=== PATIENT | female | born 1965 | race Caucasian/White ===

== ENCOUNTER 2017-05-18 16:19 | Emergency (ER) | payer SELFPAY ==
--- NOTE | 2017-05-18 16:23 | ED.PDOC ---
History of Present Illness - General Chief Complaint: General Stated Complaint: allergic reaction Time Seen by Provider: 05/18/17 16:20 Source: patient Exam Limitations: no limitations - History of Present Illness Initial Comments: Yesenia Guardado 52 y/o female with history of asthma,pollen allergies as well as bad reaction to bee and wasp sting stated that she took one bee pollen tablet at about 1230 h today then about 1 1/2 hour later had tingling sensation on her legs ,face got red and felt throat is tightening took 3 benadryl pill then symptoms got better then after 3 hours had recurrence of symptoms and took 3 pills of benadryl and decided to come to er.On her arrival to er stated she started feeling better. Timing/Duration: 4-6 hours, resolved prior to arrival Severity: moderate Improving Factors: nothing Worsening Factors: nothing Associated Symptoms: denies symptoms Allergies/Adverse Reactions: Allergies Codeine Allergy (Verified 05/18/17 16:41) Home Medications: Ambulatory Orders Albuterol Inhaler [Ventolin Hfa Inhaler] 1 puff INH PRN PRN 08/07/15 Albuterol Sulfate [Proair Hfa] 2 puff INH Q6H PRN 08/07/15 Lansoprazole [Prevacid] 30 mg PO DAILY 08/07/15 Levetiracetam [Keppra] 2,000 mg PO BEDTIME 08/07/15 Metaproterenol Sulfate 20 mg PO PRN 08/07/15 Metoclopramide HCl 10 mg PO TID 08/07/15 predniSONE 10 mg PO BID #14 tab 05/18/17 Review of Systems - Review of Systems Constitutional: States: no symptoms reported EENTM: States: see HPI Respiratory: States: no symptoms reported Cardiology: States: no symptoms reported Gastrointestinal/Abdominal: States: no symptoms reported Genitourinary: States: no symptoms reported Musculoskeletal: States: no symptoms reported Skin: States: no symptoms reported Neurological: States: no symptoms reported Endocrine: States: no symptoms reported Hematologic/Lymphatic: States: no symptoms reported Past Medical History (General) - Patient Medical History Hx Asthma: Yes Hx Congestive Heart Failure: No Hx Diabetes: No Surgical History: other - hysterectomy,knee,lumbar spine - Social History Hx Chewing Tobacco Use: No Hx Alcohol Use: No Hx Substance Use: No Hx Depression: No Feels Threatened In Home Enviroment: No Feels Threatened In a Relationship: No Hx Physical Abuse: No Hx Emotional Abuse: No Hx Suspected Abuse: No - Activities of Daily Living Patient Lives Alone: No - family - Female History Patient is a Female of Child Bearing Age (10 -59 yrs old): No - hysterectomy Family Medical History - Family History Father Hx Family Asthma: Yes Hx Family Hypertension: Yes Hx Family Diabetes: Yes Mother Family History: Unknown Living Status: Unknown Physical Exam - Physical Exam General Appearance: Alert, Anxious, No apparent distress Eye Exam: bilateral normal Ears, Nose, Throat: hearing grossly normal, normal ENT inspection, normal pharynx Neck: non-tender, full range of motion, supple Respiratory: chest non-tender, lungs clear, normal breath sounds Cardiovascular/Chest: normal peripheral pulses, regular rate, rhythm, no murmur Peripheral Pulses: radial,right: 2+, radial,left: 2+ Gastrointestinal/Abdominal: normal bowel sounds, non tender, soft Back Exam: normal inspection, no CVA tenderness, no vertebral tenderness Extremity: normal range of motion, non-tender, normal inspection, no calf tenderness Neurologic: no motor/sensory deficits, alert, normal mood/affect, oriented x 3 Skin Exam: normal color, warm/dry Lymphatic: no adenopathy Progress - Progress Progress: 05/18/17 16:46 Vital Signs - 24 hr 05/18/17 16:36 Temperature 97.2 F L Pulse Rate [ 121 H Right Brachial] Respiratory 24 Rate Blood Pressure 119/89 [Right Arm] O2 Sat by Pulse 97 Oximetry 05/18/17 17:23 stated felt better throat not feeling tight,no sob Departure - Departure Clinical Impression: Allergic reaction caused by a drug Time of Disposition: 17:24 Disposition: Discharge to Home or Self Care Condition: Good Instructions: DI for General Allergic Reactions, DI for Adverse Drug Reaction - - Allergic Referrals: Francisco J Escobar III, MD [Primary Care Provider] - 1-2 Weeks Prescriptions: predniSONE 10 mg PO BID #14 tab Home Medications: Ambulatory Orders Albuterol Inhaler [Ventolin Hfa Inhaler] 1 puff INH PRN PRN 08/07/15 Albuterol Sulfate [Proair Hfa] 2 puff INH Q6H PRN 08/07/15 Lansoprazole [Prevacid] 30 mg PO DAILY 08/07/15 Levetiracetam [Keppra] 2,000 mg PO BEDTIME 08/07/15 Metaproterenol Sulfate 20 mg PO PRN 08/07/15 Metoclopramide HCl 10 mg PO TID 08/07/15 predniSONE 10 mg PO BID #14 tab 05/18/17 Additional Instructions: Return to emergency room as needed;Continue with Benadryl (otc) 2 capsules 2-3 x a day for 3 more days,Zantac-75mg(otc) one tablet am/pm for 5 days
[2017-05-18] MEDS ORDERED: EPINEPHrine HCL AMP 1 MG/ML AMP IM ONE (16:24)
[2017-05-18] MEDS ORDERED: DEXAMETHASONE INJ 4 MG/ML VIAL IM ONE (16:24)
[2017-05-18] MEDS ORDERED: predniSONE 20 MG TAB PO ONE (16:33)
[2017-05-18 16:41] VITALS: TEMP 97.2
[2017-05-18 17:43] VITALS: BP 125/70; O2SAT 95
== END 2017-05-18 17:43 | disposition home or self-care (01) ==
LOC: ER 16:19
DX: T50.995A Adverse effect of other drugs, medicaments and biological substances, initial encounter (principal); J45.909 Unspecified asthma, uncomplicated; Z88.6 Allergy status to analgesic agent; Z79.899 Other long term (current) drug therapy
CPT/HCPCS: J1100; J7512

== ENCOUNTER 2017-05-18 18:01 | Emergency (ER) | payer SELFPAY ==
[2017-05-18 18:22] VITALS: TEMP 97
[2017-05-18] MEDS ORDERED: EPINEPHrine HCL AMP 1 MG/ML AMP ONE (19:16)
[2017-05-18] MEDS ORDERED: EPINEPHrine HCL AMP 1 MG/ML AMP IM ONE (19:20)
[2017-05-18] MEDS ORDERED: LACTATED RINGERS 1,000 ML IVS ONE (19:25)
--- NOTE | 2017-05-18 19:31 | ED.PDOC ---
History of Present Illness - General Chief Complaint: Allergic Reaction Stated Complaint: throat swelling Time Seen by Provider: 05/18/17 19:20 Source: patient, RN notes reviewed, Vital Signs reviewed Exam Limitations: no limitations - History of Present Illness Initial Comments: Yesenia Guardado 52 y/o female seen here at [facility] with drug allergic reaction- took a pill of bee pollen was given epinephrine 0.3 mg im,decadron 8 mg im , prednisone 20 mg po and zantac 300 mg po was sent after an hour no sob but came back after 15 minutes while they were buying food had felt thoat was tightening again ,no sob,no itching. Timing/Duration: 4-6 hours Severity: moderate Improving Factors: nothing Worsening Factors: nothing Associated Symptoms: denies symptoms Allergies/Adverse Reactions: Allergies Codeine Allergy (Verified 05/18/17 16:41) Home Medications: Ambulatory Orders Albuterol Inhaler [Ventolin Hfa Inhaler] 1 puff INH PRN PRN 08/07/15 Albuterol Sulfate [Proair Hfa] 2 puff INH Q6H PRN 08/07/15 Lansoprazole [Prevacid] 30 mg PO DAILY 08/07/15 Levetiracetam [Keppra] 2,000 mg PO BEDTIME 08/07/15 Metaproterenol Sulfate 20 mg PO PRN 08/07/15 Metoclopramide HCl 10 mg PO TID 08/07/15 predniSONE 10 mg PO BID #14 tab 05/18/17 Review of Systems - Review of Systems Constitutional: States: no symptoms reported EENTM: States: see HPI, throat swelling Respiratory: States: no symptoms reported Cardiology: States: no symptoms reported Gastrointestinal/Abdominal: States: no symptoms reported Genitourinary: States: no symptoms reported Skin: States: no symptoms reported Neurological: States: no symptoms reported Endocrine: States: no symptoms reported Hematologic/Lymphatic: States: no symptoms reported Past Medical History (General) - Patient Medical History Hx Asthma: Yes Hx Congestive Heart Failure: No Hx Diabetes: No Surgical History: other - hysterectomy ,lumbar spine,knee - Vaccination History Hx Influenza Vaccination: Yes - Social History Hx Tobacco Use: No Hx Chewing Tobacco Use: No Hx Alcohol Use: No Hx Substance Use: No Hx Depression: No Hx Physical Abuse: No Hx Emotional Abuse: No Hx Suspected Abuse: No Family Medical History - Family History Mother Family History: Unknown Living Status: Unknown Father Hx Family Asthma: Yes Hx Family Hypertension: Yes Hx Family Diabetes: Yes Physical Exam - Physical Exam General Appearance: Alert, Anxious, No apparent distress Eye Exam: bilateral normal Ears, Nose, Throat: hearing grossly normal, normal ENT inspection, normal pharynx, other - no drooling Neck: non-tender, full range of motion, supple Respiratory: chest non-tender, lungs clear, normal breath sounds Cardiovascular/Chest: normal peripheral pulses, regular rate, rhythm, no edema, no gallop, no JVD, no murmur, other - speaks in full sentences Peripheral Pulses: radial,right: 2+, radial,left: 2+ Gastrointestinal/Abdominal: normal bowel sounds, non tender, soft, no organomegaly Back Exam: normal inspection, no CVA tenderness, no vertebral tenderness Extremity: normal range of motion, non-tender, normal inspection Neurologic: no motor/sensory deficits, alert, normal mood/affect, oriented x 3 Skin Exam: normal color, warm/dry Lymphatic: no adenopathy Departure - Departure Clinical Impression: Allergic reaction caused by a drug Time of Disposition: 22:26 Disposition: Discharge to Home or Self Care Condition: Good Departure Forms: ED Discharge - Pt. Copy, Patient Portal Self Enrollment Referrals: Francisco J Escobar III, MD [Primary Care Provider] - 1-2 Weeks Home Medications: Ambulatory Orders Albuterol Inhaler [Ventolin Hfa Inhaler] 1 puff INH PRN PRN 08/07/15 Albuterol Sulfate [Proair Hfa] 2 puff INH Q6H PRN 08/07/15 Lansoprazole [Prevacid] 30 mg PO DAILY 08/07/15 Levetiracetam [Keppra] 2,000 mg PO BEDTIME 08/07/15 Metaproterenol Sulfate 20 mg PO PRN 08/07/15 Metoclopramide HCl 10 mg PO TID 08/07/15 predniSONE 10 mg PO BID #14 tab 05/18/17 Additional Instructions: Return to emergency room as needed;Do not take any bee pollen tablet
[2017-05-18 22:15] VITALS: O2SAT 99
[2017-05-18 22:54] VITALS: BP 148/68
== END 2017-05-18 22:35 | disposition home or self-care (01) ==
LOC: ER 18:01
DX: T50.995D Adverse effect of other drugs, medicaments and biological substances, subsequent encounter (principal); J45.909 Unspecified asthma, uncomplicated; Z79.899 Other long term (current) drug therapy; Z88.6 Allergy status to analgesic agent

== ENCOUNTER 2017-10-06 16:11 | Emergency (ER) | payer OTHER ==
[2017-10-06] MEDS ORDERED: NITROGLYCERIN 0.4 MG 25 EA TAB SL ONE (16:32)
[2017-10-06 16:34] VITALS: TEMP 98.2
--- NOTE | 2017-10-06 16:36 | ED.PDOC ---
History of Present Illness - General Source: patient, RN notes reviewed, Vital Signs reviewed Exam Limitations: no limitations - History of Present Illness Initial Comments: Patient comes in with c/o right sided chest pain just lateral to sternum. Pain started @ ~09:30 this morning and has been constant. Describes it as a pressure. Pain is currently 3/10. + SOB when she gets up and moves around. + nausea. No diaphoresis. She has been having this pain off and on for the past 3 months. She came in today because it did not go away. Pain is worse with deep breathing. No prior cardiac workup. She does reports occasionally feeling like she is going to pass out with the chest pain. Did not feel that way today. She has occasionally had palpitations. Timing/Duration: 7-24 hours, constant Severity/Quality: mild - 3/10, pressure Location: other - Just to right of sternum Chest Pain Radiation: no radiation Activities at Onset: activity Prior Chest Pain/Cardiac Workup: no prior chest pain Improving Factors: nothing Worsening Factors: movement Nitro Today/Relief: 0.4 mg x 1, provided by ED, complete relief Aspirin Treatment Today: 325 mg x 1, provided at home Associated Symptoms: dizziness, nausea/vomiting, shortness of breath <Monica Avalos - Last Filed: 10/06/17 18:06> <Adriel Loera - Last Filed: 10/06/17 20:51> - General Chief Complaint: Chest Pain/RI Stated Complaint: chest pain Time Seen by Provider: 10/06/17 16:14 - History of Present Illness Allergies/Adverse Reactions: Allergies Codeine Allergy (Verified 05/18/17 16:41) Home Medications: Ambulatory Orders Albuterol Sulfate [Proair Hfa] 2 puff INH Q6H PRN 08/07/15 Lansoprazole [Prevacid] 30 mg PO DAILY 08/07/15 Metaproterenol Sulfate 20 mg PO PRN 08/07/15 Metoclopramide HCl 10 mg PO TID PRN 08/07/15 Amitriptyline HCl [Elavil] 25 mg PO BEDTIME 10/06/17 Aspirin (Buffered) 325 mg [Bufferin 325 mg] 1 ea PO QDAC 30 Days #30 tab Cetirizine HCl 10 mg PO DAILY 10/06/17 Cholesterol 11/20/17 Divalproex Sodium [Depakote] 500 mg PO BID 10/06/17 Nitroglycerin 0.4 mg Tab [Nitrostat] 0.4 mg SL .Q5M PRN #1 bttl MDD 1 10/06/17 Topiramate [Topamax] 50 mg PO BID 10/06/17 Review of Systems - Review of Systems Constitutional: States: no symptoms reported Respiratory: States: see HPI, short of breath Cardiology: States: see HPI, chest pain, palpitations. Denies: syncope Gastrointestinal/Abdominal: States: see HPI, nausea. Denies: abdominal pain, vomiting Musculoskeletal: States: no symptoms reported Skin: States: no symptoms reported Neurological: States: no symptoms reported All other Systems: No Change from Baseline <Monica Avalos - Last Filed: 10/06/17 18:06> Past Medical History (General) - Patient Medical History Hx Seizures: No Hx Stroke: No Hx Asthma: Yes Hx Cardiac Disorders: No Hx Congestive Heart Failure: No Hx Thyroid Disease: No Hx Diabetes: No Hx Renal Disease: No Surgical History: other - Vaccination History Hx Influenza Vaccination: Yes - Social History Hx Tobacco Use: No Hx Chewing Tobacco Use: No Hx Alcohol Use: No Hx Substance Use: No Hx Depression: No Hx Physical Abuse: No Hx Emotional Abuse: No Hx Suspected Abuse: No <Monica Avalos - Last Filed: 10/06/17 18:06> Family Medical History - Family History Mother Family History: Unknown Living Status: Unknown Father Hx Family Asthma: Yes Hx Family Hypertension: Yes Hx Family Diabetes: Yes <Monica Avalos Last Filed: 10/06/17 18:06> Physical Exam - Physical Exam General Appearance: Alert, Anxious, No apparent distress, Obese, Well Developed , Well Groomed, Well Hydrated, Well Nourished Neck: full range of motion, supple, normal inspection Respiratory: chest non-tender, lungs clear, normal breath sounds, no respiratory distress, no accessory muscle use Cardiovascular/Chest: normal peripheral pulses, no edema, no gallop, no JVD, no murmur, tachycardia Peripheral Pulses: radial,right: 2+, radial,left: 2+, dorsalis pedis,right: 2+, dorsalis pedis,left: 2+ Gastrointestinal/Abdominal: normal bowel sounds, non tender, soft, no organomegaly Extremity: normal range of motion, normal inspection, no pedal edema Neurologic: alert, normal mood/affect, oriented x 3 Skin Exam: normal color, warm/dry Comments: Vital Signs 10/06/17 10/06/17 16:13 16:20 Temperature 98.2 F Pulse Rate [ 108 H 105 H apical] Respiratory 20 20 Rate Blood Pressure 155/78 [left brachial] O2 Sat by Pulse 97 Oximetry <Monica Avalos - Last Filed: 10/06/17 18:06> Progress - Progress Progress: 10/06/17 18:07 Initial labs, EKG and CXR are within normal limits. Will repeat cardiac enzymes @ 19:30. If normal will plan to d/c home with Rx for SLNTG and follow up with [employer]. - EKG/XRAY/CT EKG: Sinus, Tachy, no ST T wave changes Comments: Rate 102 bpm XRAY: chest - No acute process per Radiologist <Monica Avalos - Last Filed: 10/06/17 18:06> - Progress Progress: 10/06/17 20:01 I discussed patient's chest pain with her. Given the exertional component that is relieved by rest, was well has her need to take aspirin/ nitro to releave the patient, I did recomment her for transfer to [facility] to coronary blockage tonight. Patient declined this and wanted to go home. understands that even if enzymes are negative that does not exclude coronary blockage that has revascularized or unstable angina. Also understands her need to see a produce wrapper as soon as possible. Pt stated that wanted to wait for her PCP to decide where to send her for this. I explanded the current recommendations to her for stress test by the [employer] [facility] [employer]. pt understands this. pt requests nitro for home. I also discussed her to start her antilipid and full dose 325 asa for home as well. Pt will return if any worsening or non relieve of cp after one nitro. 10/06/17 20:44 pt still chest pain free will return return as previously discussed if issue - Results/Orders Results/Orders: 10/06/17 16:32 IV Care:Saline Lock per Protoc QSHIFT Telemetry Q4H 10/06/17 16:45 EKG STAT Laboratory Results - last 24 hr 10/06/17 10/06/17 10/06/17 16:20 16:20 16:20 WBC 8.1 RBC 4.17 L Hgb 14.4 Hct 41.9 MCV 100.3 H MCH 34.5 H MCHC 34.4 RDW 12.5 Plt Count 196 MPV 8.3 Absolute Neuts (auto) 4.80 Absolute Lymphs (auto) 2.00 Absolute Monos (auto) 0.60 Absolute Eos (auto) 0.60 H Absolute Basos (auto) 0.10 Neutrophils % 59.3 Lymphocytes % 25.1 Monocytes % 7.0 Eosinophils % 7.9 H Basophils % 0.7 D-Dimer, Quantitative < 200 Sodium 139 Potassium 3.6 Chloride 106 Carbon Dioxide 23 Anion Gap 13.6 BUN 21 H Creatinine 0.91 BUN/Creatinine Ratio 23.1 H Random Glucose 94 Serum Osmolality 280.3 Calcium 9.1 Total Bilirubin 0.3 AST 33 ALT 29 Alkaline Phosphatase 63 Creatine Kinase 103 CK-MB (CK-2) 1.6 CK-MB (CK-2) % Not Reportable Troponin I < 0.02 Serum Total Protein 7.5 Albumin 3.9 Globulin 3.6 H Albumin/Globulin Ratio 1.1 10/06/17 19:34 WBC RBC Hgb Hct MCV MCH MCHC RDW Plt Count MPV Absolute Neuts (auto) Absolute Lymphs (auto) Absolute Monos (auto) Absolute Eos (auto) Absolute Basos (auto) Neutrophils % Lymphocytes % Monocytes % Eosinophils % Basophils % D-Dimer, Quantitative Sodium Potassium Chloride Carbon Dioxide Anion Gap BUN Creatinine BUN/Creatinine Ratio Random Glucose Serum Osmolality Calcium Total Bilirubin AST ALT Alkaline Phosphatase Creatine Kinase 92 CK-MB (CK-2) 1.2 CK-MB (CK-2) % Not Reportable Troponin I < 0.02 Serum Total Protein Albumin Globulin Albumin/Globulin Ratio 10/06/17 16:32 IV Care:Saline Lock per Protoc QSHIFT Telemetry Q4H 10/06/17 16:45 EKG STAT Laboratory Results WBC 8.1 K/mm3 (4.8-10.8) 10/06/17 16:20 RBC 4.17 M/mm3 (4.20-5.40) L 10/06/17 16:20 Hgb 14.4 gm/dL (12.0-16.0) 10/06/17 16:20 Hct 41.9 % (36.0-47.0) 10/06/17 16:20 MCV 100.3 fl (81.0-99.0) H 10/06/17 16:20 MCH 34.5 pg (27.0-31.0) H 10/06/17 16:20 MCHC 34.4 g/dL (33.0-37.0) 10/06/17 16:20 RDW 12.5 % (11.5-14.5) 10/06/17 16:20 Plt Count 196 K/mm3 (130-400) 10/06/17 16:20 MPV 8.3 fl (7.40-10.4) 10/06/17 16:20 Absolute Neuts (auto) 4.80 K/uL (1.8-6.8) 10/06/17 16:20 Absolute Lymphs (auto) 2.00 K/uL (1.0-3.4) 10/06/17 16:20 Absolute Monos (auto) 0.60 K/uL (0.2-0.8) 10/06/17 16:20 Absolute Eos (auto) 0.60 K/uL (0.0-0.4) H 10/06/17 16:20 Absolute Basos (auto) 0.10 K/uL (0.0-0.1) 10/06/17 16:20 Neutrophils % 59.3 % (42.0-78.0) 10/06/17 16:20 Lymphocytes % 25.1 % (20.0-50.0) 10/06/17 16:20 Monocytes % 7.0 % (2.0-9.0) 10/06/17 16:20 Eosinophils % 7.9 % (1.0-5.0) H 10/06/17 16:20 Basophils % 0.7 % (0.0-2.0) 10/06/17 16:20 D-Dimer, Quantitative < 200 ng/mL (0-230) 10/06/17 16:20 Sodium 139 mmol/L (135-145) 10/06/17 16:20 Potassium 3.6 mmol/L (3.6-5.0) 10/06/17 16:20 Chloride 106 mmol/L (101-111) 10/06/17 16:20 Carbon Dioxide 23 mmol/L (21-31) 10/06/17 16:20 Anion Gap 13.6 (12-18) 10/06/17 16:20 BUN 21 mg/dL (7-18) H 10/06/17 16:20 Creatinine 0.91 mg/dL (0.6-1.3) 10/06/17 16:20 BUN/Creatinine Ratio 23.1 (10-20) H 10/06/17 16:20 Random Glucose 94 mg/dL (70-105) 10/06/17 16:20 Serum Osmolality 280.3 mOsm/L (275-295) 10/06/17 16:20 Calcium 9.1 mg/dL (8.4-10.2) 10/06/17 16:20 Total Bilirubin 0.3 mg/dL (0.2-1.0) 10/06/17 16:20 AST 33 IU/L (10-42) 10/06/17 16:20 ALT 29 IU/L (10-60) 10/06/17 16:20 Alkaline Phosphatase 63 IU/L (42-121) 10/06/17 16:20 Creatine Kinase 92 IU/L (26-140) 10/06/17 19:34 CK-MB (CK-2) 1.2 ng/mL (0.0-4.4) 10/06/17 19:34 CK-MB (CK-2) % Not Reportable 10/06/17 19:34 Troponin I < 0.02 ng/mL (0.01-0.05) 10/06/17 19:34 Serum Total Protein 7.5 gm/dL (6.4-8.2) 10/06/17 16:20 Albumin 3.9 g/dl (3.2-5.5) 10/06/17 16:20 Globulin 3.6 gm/dL (2.3-3.5) H 10/06/17 16:20 Albumin/Globulin Ratio 1.1 (1.1-1.9) 10/06/17 16:20 <Adriel Loera - Last Filed: 10/06/17 20:51> Departure <Monica Avalos - Last Filed: 10/06/17 18:06> - Departure Time of Disposition: 20:45 Diet: resume usual diet, low salt diet Activity: increase activity as tolerated <Adriel Loera - Last Filed: 10/06/17 20:51> - Departure Clinical Impression: Precordial chest pain, Chest pain Disposition: Discharge to Home or Self Care Condition: Excellent Departure Forms: ED Discharge - Pt. Copy, Patient Portal Self Enrollment Instructions: DI for Chest Pain Referrals: Francisco J Escobar III, MD [Primary Care Provider] - 1-2 Days Prescriptions: Aspirin (Buffered) 325 mg [Bufferin 325 mg] 1 ea PO QDAC 30 Days #30 tab Nitroglycerin 0.4 mg Tab [Nitrostat] 0.4 mg SL .Q5M PRN #1 bttl MDD 1 PRN Reason: Chest Pain Home Medications: Ambulatory Orders Albuterol Sulfate [Proair Hfa] 2 puff INH Q6H PRN 08/07/15 Lansoprazole [Prevacid] 30 mg PO DAILY 08/07/15 Metaproterenol Sulfate 20 mg PO PRN 08/07/15 Metoclopramide HCl 10 mg PO TID PRN 08/07/15 Amitriptyline HCl [Elavil] 25 mg PO BEDTIME 10/06/17 Aspirin (Buffered) 325 mg [Bufferin 325 mg] 1 ea PO QDAC 30 Days #30 tab Cetirizine HCl 10 mg PO DAILY 10/06/17 Cholesterol 10/06/17 Divalproex Sodium [Depakote] 500 mg PO BID 10/06/17 Nitroglycerin 0.4 mg Tab [Nitrostat] 0.4 mg SL .Q5M PRN #1 bttl MDD 1 10/06/17 Topiramate [Topamax] 50 mg PO BID 10/06/17
--- NOTE | 2017-10-06 17:00 | RAD ---
PROCEDURE: XR CHEST 1 VIEW HISTORY: Chest pain COMPARISON: 07/29/2012 TECHNIQUE: Single projection of the chest was done. FINDINGS: There is thickening of the right horizontal fissure, most likely chronic . There are no discrete airspace infiltrates, pneumothoraces or pleural effusions. The pulmonary vascularity is normal. The cardiomediastinal silhouette is unremarkable for patient's age and sex. IMPRESSION: There is no acute pleural-parenchymal process seen in the imaged lung morales. Location of Interpretation: Teleradiology Electronically signed by: Michael Duran MD 10/06/2017 4:59 PM [facility] Workstation: [id number]
[2017-10-06 20:36] VITALS: BP 132/77
[2017-10-06 21:04] VITALS: O2SAT 100
== END 2017-10-06 21:05 | disposition home or self-care (01) ==
LOC: ER 16:11
DX: R07.89 Other chest pain (principal); Z79.82 Long term (current) use of aspirin; Z79.899 Other long term (current) drug therapy; Z88.6 Allergy status to analgesic agent

== ENCOUNTER → 2017-11-20 | Outpatient (CLI) | payer OTHER | END | disposition home or self-care (01) | LOC: GMAL 14:31 | PROVIDERS: ATTEND Family Medicine | DX: Z00.01 Encounter for general adult medical examination with abnormal findings (principal) ==

== ENCOUNTER → 2018-02-12 | Outpatient (CLI) | payer OTHER | LOC: GMAL 11:00 | PROVIDERS: ATTEND Family Medicine | DX: R56.9 Unspecified convulsions (principal); R10.9 Unspecified abdominal pain ==

== ENCOUNTER 2018-04-05 17:15 | Emergency (ER) | payer OTHER ==
[2018-04-05] MEDS ORDERED: MORPHINE SULFATE INJ 10 MG/ML VIAL IM ONE (17:25)
[2018-04-05] MEDS ORDERED: PROMETHAZINE HCL INJ 25 MG/ML VIAL IM ONE (17:25)
[2018-04-05 17:26] VITALS: TEMP 98.2
--- NOTE | 2018-04-05 17:29 | ED.PDOC ---
History of Present Illness - General Chief Complaint: Upper Extremity Injury Stated Complaint: right shoulder pain Time Seen by Provider: 04/05/18 17:21 Source: patient - History of Present Illness Occurred: just prior to arrival Pain - Upper Extremity: moderate: Shoulder, right Method of Injury: fell Improving Factors: immobilization Worsening Factors: movement Allergies/Adverse Reactions: Allergies Codeine Allergy (Verified 05/18/17 16:41) Home Medications: Ambulatory Orders Albuterol Sulfate [Proair Hfa] 2 puff INH Q6H PRN 08/07/15 Lansoprazole [Prevacid] 30 mg PO DAILY 08/07/15 Metaproterenol Sulfate 20 mg PO PRN 08/07/15 Metoclopramide HCl 10 mg PO TID PRN 08/07/15 Amitriptyline HCl [Elavil] 25 mg PO BEDTIME 10/06/17 Aspirin (Buffered) 325 mg [Bufferin 325 mg] 1 ea PO QDAC 30 Days #30 tab Cetirizine HCl 10 mg PO DAILY 10/06/17 Cholesterol 10/06/17 Divalproex Sodium [Depakote] 500 mg PO BID 10/06/17 Nitroglycerin 0.4 mg Tab [Nitrostat] 0.4 mg SL .Q5M PRN #1 bttl MDD 1 10/06/17 Topiramate [Topamax] 50 mg PO BID 10/06/17 Acetamin W/Cod #3 Tab [Tylenol w/CODEINE #3] 1 ea PO Q6HR PRN #40 tab 04/05/18 Review of Systems - Review of Systems Constitutional: States: no symptoms reported EENTM: States: no symptoms reported Respiratory: States: no symptoms reported Cardiology: States: no symptoms reported Gastrointestinal/Abdominal: States: no symptoms reported Genitourinary: States: no symptoms reported Musculoskeletal: States: see HPI Skin: States: no symptoms reported Neurological: States: no symptoms reported, emotional problems Endocrine: States: no symptoms reported Hematologic/Lymphatic: States: no symptoms reported Past Medical History (General) - Patient Medical History Hx Seizures: Yes Hx Stroke: No Hx Asthma: Yes Hx Cardiac Disorders: No Hx Congestive Heart Failure: No Hx Thyroid Disease: No Hx Diabetes: No Hx Renal Disease: No - Vaccination History Hx Influenza Vaccination: Yes - Social History Hx Tobacco Use: No Hx Chewing Tobacco Use: No Hx Alcohol Use: No Hx Substance Use: No Hx Depression: No Hx Physical Abuse: No Hx Emotional Abuse: No Hx Suspected Abuse: No Family Medical History - Family History Mother Family History: Unknown Living Status: Unknown Father Hx Family Asthma: Yes Hx Family Hypertension: Yes Hx Family Diabetes: Yes Physical Exam - Physical Exam General Appearance: Alert, Obvious distress Eyes, Ears, Nose, Throat Exam: PERRL/EOMI, normal ENT inspection, TMs normal Neck: non-tender, full range of motion, supple, normal inspection Cardiovascular/Respiratory: regular rate, rhythm, no M/R/G, normal peripheral pulses, no JVD, normal breath sounds Abdominal Exam: non-tender, no organomegaly Back Exam: normal inspection, no CVA tenderness, no vertebral tenderness Shoulder Exam: limited ROM, pain Elbow/Forearm Exam: normal inspection, non-tender Wrist Exam: normal inspection, non-tender Hand Exam: normal inspection, non-tender Neuro/Tendon: normal sensation, normal motor functions, normal tendon functions Progress - Results/Orders Results/Orders: X RAY REVIEWED ANTERIOR DISLOCATION OF RIGHT SHOULDER NOTED UNDER IV FENTANYL 100 MG AND VERSED 5 MG ( INTRAARTICULARV 10 CC OF 1% LIDOCAINE ) POST REDUCTION FILM REDCUTION IS SUCCESSFUL THE REDUCTION WAS DONE WITHOUT ANY DIFFICULTY PLACED ON SHOULDER IMMOBILIZER Departure - Departure Clinical Impression: Shoulder dislocation Time of Disposition: 18:04 Disposition: Discharge to Home or Self Care Departure Forms: ED Discharge - Pt. Copy, Patient Portal Self Enrollment Instructions: DI for Arm Pain Diet: resume usual diet Referrals: Francisco J Escobar III, MD [Primary Care Provider] - 1-2 Weeks Prescriptions: Acetamin W/Cod #3 Tab [Tylenol w/CODEINE #3] 1 ea PO Q6HR PRN #40 tab PRN Reason: Mild To Moderate Pain Home Medications: Ambulatory Orders Albuterol Sulfate [Proair Hfa] 2 puff INH Q6H PRN 08/07/15 Lansoprazole [Prevacid] 30 mg PO DAILY 08/07/15 Metaproterenol Sulfate 20 mg PO PRN 08/07/15 Metoclopramide HCl 10 mg PO TID PRN 08/07/15 Amitriptyline HCl [Elavil] 25 mg PO BEDTIME 10/06/17 Aspirin (Buffered) 325 mg [Bufferin 325 mg] 1 ea PO QDAC 30 Days #30 tab Cetirizine HCl 10 mg PO DAILY 10/06/17 Cholesterol 10/06/17 Divalproex Sodium [Depakote] 500 mg PO BID 10/06/17 Nitroglycerin 0.4 mg Tab [Nitrostat] 0.4 mg SL .Q5M PRN #1 bttl MDD 1 10/06/17 Topiramate [Topamax] 50 mg PO BID 10/06/17 Acetamin W/Cod #3 Tab [Tylenol w/CODEINE #3] 1 ea PO Q6HR PRN #40 tab 04/05/18 Additional Instructions: REST YOUR SHOULDER IN THE SHOULDER IMMOBILIZER FOLOOW WITH DR HURTADO ORTHO
[2018-04-05] MEDS ORDERED: MIDAZOLAM INJ 5 MG/5 ML VIAL IV ONE (17:37)
[2018-04-05] MEDS ORDERED: fentaNYL CITRATE INJ 50 MCG/ML AMP IV ONE (17:37)
[2018-04-05] MEDS ORDERED: LIDOCAINE 1% 10 ML VIAL INJ ONE (17:39)
--- NOTE | 2018-04-05 17:41 | RAD ---
EXAM DESCRIPTION: Shoulder,Right 2 or More Views CLINICAL HISTORY: 53 years Female, pain after fall COMPARISON: None. TECHNIQUE: 2 separate AP views of the shoulder FINDINGS: Medial inferior dislocation humeral head with respect to the bony glenoid. Probable anterior dislocation. No fractures identified IMPRESSION: Shoulder dislocation Electronically signed by: Andrea Myers 04/05/2018 5:40 PM CDT
--- NOTE | 2018-04-05 18:05 | RAD ---
EXAM DESCRIPTION: Shoulder, right 1 View CLINICAL HISTORY: 53 years Female post reduction COMPARISON: None. TECHNIQUE: RIGHT shoulder single view FINDINGS: There has been interval reduction of the right shoulder with anatomic alignment in this single view. Mild degenerative change at the AC joint. No acute fracture noted. Acromioclavicular joint appears maintained. IMPRESSION: Interval reduction of the right shoulder dislocation Electronically signed by: Deisy Lind MD 04/05/2018 6:04 PM CDT
[2018-04-05] MEDS ORDERED: HYDROCOD/APAP 5/325 (ER DISP) #3 TAB PO ONE (18:30)
[2018-04-05 18:47] VITALS: BP 148/98; O2SAT 95
== END 2018-04-05 18:47 | disposition home or self-care (01) ==
LOC: ER 17:15
DX: S43.014A Anterior dislocation of right humerus, initial encounter (principal); J45.909 Unspecified asthma, uncomplicated; W19.XXXA Unspecified fall, initial encounter; Y92.9 Unspecified place or not applicable
CPT/HCPCS: 73020; 73030; J2250; J3010

== ENCOUNTER 2018-05-12 14:45 | Emergency (ER) | payer OTHER ==
[2018-05-12] MEDS ORDERED: diphenhydrAMINE HCL 50 MG/ML VIAL IV ONE (14:48)
[2018-05-12] MEDS ORDERED: ONDANSETRON INJ 4 MG/2 ML VIAL ONE ×2 (14:54→14:58)
[2018-05-12] MEDS: EPINEPHrine HCL AMP 1 MG/ML AMP SUBCU ONE ×2 (14:56→15:06)
[2018-05-12] MEDS ORDERED: methylPREDNISolone SODIUM SUC 125 MG/2 ML VIAL IV ONE (14:59)
[2018-05-12] MEDS ORDERED: methylPREDNISolone SODIUM SUC 125 MG/2 ML VIAL ONE (14:59)
[2018-05-12] MEDS ORDERED: ONDANSETRON INJ 4 MG/2 ML VIAL IV ONE (15:00)
[2018-05-12] MEDS ORDERED: raNITIdine HCL INJ 50 MG in SODIUM CHLORIDE 0.9% 50ML 50 ML IVPB ONE (15:07)
--- NOTE | 2018-05-12 15:14 | ED.PDOC ---
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 (HAD NEVER TAKEN IT BEFORE.) ALL OF A SUDDEN, TONGUE SWOLEN, FELT HOT, DIFFICULTY SPEAKING FROM SWOLLEN TONGUE. MILD DYSPNEA. TOOK BENADRYL 100 MG, DYSPNEA STARTED IMPROVING. NO SOB PRESENTLY. H/O POLLEN AND BEE ALLERGIES, ASTHMA, SZ HX. Timing/Duration: 1 hour Severity: severe Improving Factors: medication Worsening Factors: nothing Associated Symptoms: other - FEELS HOT. Allergies/Adverse Reactions: Allergies Codeine Allergy (Verified 05/12/18 15:28) Home Medications: Ambulatory Orders Albuterol Sulfate [Proair Hfa] 2 puff INH Q6H PRN 08/07/15 Metaproterenol Sulfate 20 mg PO TID 08/07/15 Amitriptyline HCl [Elavil] 25 mg PO BEDTIME 10/06/17 Divalproex Sodium [Depakote] 1,000 mg PO BID 10/06/17 Topiramate [Topamax] 50 mg PO BID 10/06/17 Alprazolam [Xanax] 1 mg PO BID PRN 04/05/18 Lovastatin 40 mg PO BEDTIME 04/05/18 Methylprednisolone [Medrol Dose Santhosh] 4 mg PO DAILY #1 tab 05/12/18 Review of Systems - Review of Systems Constitutional: States: fever, malaise, weakness EENTM: States: throat swelling. Denies: blurred vision, ear pain, nose congestion, throat pain Respiratory: Denies: cough, short of breath, stridor Cardiology: Denies: chest pain, palpitations Gastrointestinal/Abdominal: States: nausea. Denies: abdominal pain, vomiting Genitourinary: States: no symptoms reported Musculoskeletal: States: no symptoms reported Skin: States: other - FEELS FLUSHED. Denies: rash Neurological: States: weakness. Denies: headache, paresthesia, seizure, tremors Endocrine: States: flushing. Denies: intolerance to cold, intolerance to heat, increased thirst Hematologic/Lymphatic: States: no symptoms reported All other Systems: Reviewed and Negative Past Medical History (General) - Patient Medical History Hx Seizures: Yes Hx Stroke: No Hx Asthma: Yes Hx Cardiac Disorders: No Hx Congestive Heart Failure: No Hx Thyroid Disease: No Hx Diabetes: No Hx Renal Disease: No - Vaccination History Hx Influenza Vaccination: Yes - Social History Hx Tobacco Use: No Hx Chewing Tobacco Use: No Hx Alcohol Use: No Hx Substance Use: No Hx Depression: No Hx Physical Abuse: No Hx Emotional Abuse: No Hx Suspected Abuse: No Family Medical History - Family History Mother Family History: Unknown Living Status: Unknown Father Hx Family Asthma: Yes Hx Family Hypertension: Yes Hx Family Diabetes: Yes Physical Exam - Physical Exam General Appearance: Alert, Ill Appearing Eye Exam: bilateral normal Ears, Nose, Throat: normal ENT inspection, normal pharynx - TONGUE ENLARGED UPON ER PRESENTATION BUT NL UPON REPEAT EXAM 10 MIN LATER. 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 NO HYPOXIA. NO RASH, NO EDEMA, NO WHEEZE, TONGUE NO LONGER EDEMATOUS. DENIES SOB. NO S/SX OF ANAPHYLAXIS, SHOCK, OR RESPIRATORY COMPROMISE. 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 IN ER, GIVEN SOLUMEDROL, ZOFRAN NAUSEA, ZANTAC H2 TOMEKA. WILL OBSERVE FOR A WHILE THEN DC HOME ON MEDROL DOSE PACK AND HAVE HER TAKE BENADRYL 50 MG Q6H. 05/12/18 15:56 CAME TO BEDSIDE FOR RE-EVAL PT WAS FEELING TREMULOUS/SHAKY. NO PHYSICAL EXAM CHANGES - NO PHARYNGEAL EDEMA, NO STRIDOR, NO WHEEZES, NO PERIPHERAL EDEMA , RRR. BP WNL 124/84. PT TOOK HER SZ MEDS THIS AM; SHE IS FULLY CONSCIOUS AND ALERT WITH NL MENTATION. WILL CONTINUE TO OBSERVE TO ENSURE SHE DOES NOT DEVELOP ANAPHYLAXIS S/SX. SHE TAKES XANAX PRN SO THERE MIGHT BE AN UNDERLYING ANXIETY COMPONENT CONTRIBUTING TO THE SHAKING, SHE SEEMS A BIT ANXIOUS. 05/12/18 16:48 PT HAS BEEN OBSERVED FOR 2 HRS, NO S/SX OF ANAPHYLAXIS THUS SAFE TO DC TO HOME ON MEDROL DOSE PACK AND HOME BENADRYL. DX: ALLERGIC TO THE VITAMIN, BIOTIN. F/U W/ PCP. Departure - Departure Clinical Impression: Allergic reaction caused by a drug, Nausea, Weakness Disposition: Discharge to Home or Self Care Condition: Good Instructions: Adverse Drug Reactions, Adult (DC) Diet: resume usual diet Activity: increase activity as tolerated Referrals: Francisco J Escobar III, MD [Primary Care Provider] - 1 Week Prescriptions: Methylprednisolone [Medrol Dose Santhosh] 4 mg PO DAILY #1 tab Home Medications: Ambulatory Orders Albuterol Sulfate [Proair Hfa] 2 puff INH Q6H PRN 08/07/15 Metaproterenol Sulfate 20 mg PO TID 08/07/15 Amitriptyline HCl [Elavil] 25 mg PO BEDTIME 10/06/17 Divalproex Sodium [Depakote] 1,000 mg PO BID 10/06/17 Topiramate [Topamax] 50 mg PO BID 10/06/17 Alprazolam [Xanax] 1 mg PO BID PRN 04/05/18 Lovastatin 40 mg PO BEDTIME 04/05/18 Methylprednisolone [Medrol Dose Santhosh] 4 mg PO DAILY #1 tab 05/12/18 Additional Instructions: Please start the medrol dose pack today. Please continue home benadryl 50 mg every 6 hours until your allergic symptoms subside.
[2018-05-12 15:43] VITALS: TEMP 98.5
[2018-05-12 17:19] VITALS: BP 132/78; O2SAT 96
== END 2018-05-12 17:00 | disposition home or self-care (01) ==
LOC: ER 14:45
DX: T45.2X5A Adverse effect of vitamins, initial encounter (principal); R11.0 Nausea; R53.1 Weakness; R06.00 Dyspnea, unspecified; R22.0 Localized swelling, mass and lump, head; R56.9 Unspecified convulsions; J45.909 Unspecified asthma, uncomplicated; Z88.5 Allergy status to narcotic agent; Z79.899 Other long term (current) drug therapy; Z91.030 Bee allergy status
CPT/HCPCS: J2405; J2930

== ENCOUNTER 2018-11-26 10:51 | Inpatient (IN) | payer OTHER ==
--- NOTE | 2018-11-26 10:54 | HP ---
SUPERVISING PHYSICIAN: Paul Webster M.D. CHIEF COMPLAINT: Shortness of breath and cough. HISTORY OF PRESENT ILLNESS: This is a 53 year-old female patient with a long history of asthma. Approximately 3 months ago she was sick for 6 weeks with similar symptoms, but got over it about 3 weeks ago. Then approximately 10 days ago she had another upper respiratory type infection with an exacerbation of her asthma. She actually went to see Dr. Escobar 1 week ago. He gave her a Z-Santhosh and breathing treatments at that time. She continued to worsen to the point that on Friday she went to Urgent Care. She received a shot of steroids as well as a prednisone taper at that facility. She was urged to go to the hospital but she had refused at that time. She called Dr. Escobar, her primary care physician, and saw him on Friday. He gave her a higher dose of the steroid taper as well as Spiriva and Tussionex. She worsened to the point where she saw Dr. Escobar again today. Due to her extreme shortness of breath with exacerbation of asthma as well as failed outpatient treatment, she was a direct admit to the hospital. In the hospital, her vital signs showed a temperature of 98.4 with pulse rate that was 98, blood pressure 158/99, respiratory rate 20, O2 saturation was 96%. She complained of coughing so hard that she felt like she pulled a muscle on the right side of her rib cage. She also has had chest congestion and productive cough with a headache. She has seasonal allergies. Blood cultures were drawn as well as lab. WBCs were 10 with hemoglobin 13.8 and hematocrit 40.8, but she did have a left shift on her differential. Sodium 144, potassium 3.1, chloride 113, carbon dioxide 20, BUN 19, creatinine 0.93, glucose 122. Liver enzymes were basically within normal limits. Urinalysis was within normal limits. Chest x-ray, single AP portable upright view of the chest shows cardiac silhouette and pulmonary vasculature to be within normal limits. The lungs are normally aerated and clear. No obvious pleural effusion or pneumothorax is seen. She was started on azithromycin and Rocephin. She was also given 125 mg of Solu-Medrol. She was also given scheduled DuoNeb with p.r.n. albuterol. She was admitted to the hospital in stable condition. PAST MEDICAL HISTORY: 1. Seizure disorder being seen by Dr. Chava Marx in [place]. 2. Asthma with moderate severity. 3. Right knee chondromalacia patella. 4. Disc disorder with radiculopathy. 5. Migraine headaches. 6. Depression and anxiety. 7. Seasonal allergies. PAST SURGICAL HISTORY: 1. Hysterectomy. 2. Left knee arthroscopy. 3. Multiple back surgeries. OUTPATIENT MEDICATIONS: 1. Albuterol sulfate. 2. Alprazolam. 3. Diazepam. 4. Lexapro. 5. Lamotrigine. 6. Lisinopril. 7. Lovastatin. 8. Metaproterenol sulfate. 9. Modafinil. 10. Sumatriptan succinate. ALLERGIES: CODEINE. FAMILY HISTORY: Positive for renal carcinoma. SOCIAL HISTORY: She is . She has 2 children. She denies tobacco or illicit drug use. She does drink 6 to 8 beers nightly but she has not drank any alcoholic beverages in 10 days. REVIEW OF SYSTEMS: GENERAL: Positive for fatigue. Negative for fever or weight changes. RESPIRATORY: As per the history of present illness. CARDIOVASCULAR: Negative for chest pain, palpitations or tachycardia. GASTROINTESTINAL: Negative for nausea, vomiting, diarrhea or constipation. INTEGUMENT: Negative for lesions or rashes. GENITOURINARY: Negative for hematuria, dysuria or polyuria. NEUROLOGIC: Positive for seizure disorder although she has not had a seizure in many years. Positive for headaches. Negative for dizziness. PHYSICAL EXAMINATION: VITAL SIGNS: Temperature 98, heart rate 99, blood pressure 136/84, respiratory rate 20, O2 sat is 95% on room air. GENERAL: This is a 53 year-old obese female lying in her hospital bed. She is coughing. HEENT: Normocephalic and atraumatic. Pupils are equal and reactive. Oropharynx is clear. NECK: Supple without mass. RESPIRATORY: Diminished at the bases with a few scattered rhonchi in the upper airways. There is very faint diffuse expiratory wheezes throughout, but again her breath sounds are very distant. She does get slightly tachypneic. She can only speak in 2 to 3 word phrases due to her dyspnea. CARDIOVASCULAR: Regular rate and rhythm. At times she is slightly tachycardic. GASTROINTESTINAL: Abdomen is soft, nondistended, non-tender. Bowel sounds are positive. EXTREMITIES: No clubbing, cyanosis or edema. NEUROLOGIC: She is awake, alert and oriented times three. LABORATORY: Labs and films are as per the history of present illness. ASSESSMENT: 1. Acute exacerbation of asthma with failed outpatient therapy. She has seen her primary care physician in clinic times 2. She has been to an Urgent Care Clinic once and she has received antibiotics as well as multiple steroid tapers. 2. History of migraine headaches. 3. Gastroesophageal reflux disease. 4. Seizure disorder presently on antiseizure medications and followed by Dr. Marx in [place]. 5. Depression and anxiety. 6. Chronic back pain. PLAN: We have admitted the patient to the hospital for acute exacerbation of her asthma. I have placed her on azithromycin and Rocephin. I have given her 125 mg of Solu-Medrol and she will receive 60 mg every 6 hours until tomorrow and we will reevaluate. She is on a PPI for ulcer prophylaxis and Lovenox for DVT prophylaxis. Her potassium was slightly low and I did give her some potassium supplementation. She will have breathing treatments both scheduled and p.r.n. She will also have Tussionex for her cough. I started her on Mucinex. I will repeat her labs for in the morning. Will continue to monitor closely and follow as needed. Dr. Webster is the collaborating physician available for consultation. #[id number] [facility]
[2018-11-26] MEDS ORDERED: ONDANSETRON INJ 4 MG/2 ML VIAL IV PRN (11:18)
[2018-11-26] MEDS ORDERED: ALBUTEROL SULFATE 2.5 MG/3 ML VIAL NEB PRN (11:18)
[2018-11-26] MEDS ORDERED: methylPREDNISolone SODIUM SUC 125 MG/2 ML VIAL IV ONE (11:23)
--- NOTE | 2018-11-26 11:42 | RAD ---
EXAM DESCRIPTION: Chest,1 View CLINICAL HISTORY: asthma exac COMPARISON: October 06, 2017 IMPRESSION: Single AP portable upright view of the chest shows cardiac silhouette and pulmonary vasculature to be within normal limits. Lungs are normally aerated and clear. No obvious pleural effusion or pneumothorax is seen. Electronically signed by: Sy Barron MD 11/26/2018 11:40 AM MERCHAND[facility]
[2018-11-26] MEDS ORDERED: IPRATROPIUM/ALBUTEROL 3 ML VIAL NEB ONE (11:43)
[2018-11-26] MEDS: ALBUTEROL SULFATE 2.5 MG/3 ML VIAL NEB SCH ×3 (12:51→19:36)
[2018-11-26] MEDS ORDERED: POTASSIUM CHLORIDE 20 MEQ TAB PO ONE (12:59)
[2018-11-26] MEDS: IV SET AND CAP CHANGE INJ INJ SCH (13:10)
[2018-11-26] MEDS: PANTOPRAZOLE SODIUM IV 40 MG VIAL IV SCH (13:10)
[2018-11-26] MEDS ORDERED: SUMATRIPTAN SUCCINATE 100 MG PO PRN (17:55)
[2018-11-26] MEDS: methylPREDNISolone SODIUM SUC 125 MG/2 ML VIAL IV SCH ×2 (18:35→23:13)
[2018-11-26] MEDS: CHLORPHENIRAMINE W/HYDROCODONE 5 ML UD PO PRN (18:36)
[2018-11-26] MEDS: BUDESONIDE NEBS 0.5 MG/2 ML VIAL NEB SCH (19:36)
[2018-11-26] MEDS ORDERED: LISINOPRIL 10 MG TAB ONE (20:24)
[2018-11-26] MEDS ORDERED: LOVASTATIN 40 MG PO SCH (21:00)
[2018-11-26] MEDS: diazePAM 5 MG TAB PO PRN (21:47)
[2018-11-26] MEDS: NON-FORMULARY MEDICATION 1 EA MIS (Lisinopril [Lisinopril] 20 MG) PO SCH (21:48)
[2018-11-26] MEDS: ENOXAPARIN SODIUM 40 MG/0.4 ML SYG SUBCU SCH (21:49)
[2018-11-26] MEDS: TEMAZEPAM 15 MG CAP PO PRN (21:50)
[2018-11-26] MEDS: guaiFENesin ER TAB 600 MG TAB PO SCH (21:50)
[2018-11-26] MEDS: [UNRECOGNIZED DRUG - OTHER] PO SCH (21:51)
[2018-11-26] MEDS: lamoTRIgine 25 MG TAB PO SCH (21:51)
[2018-11-26] MEDS: MODAFINIL 100 MG PO SCH (21:51)
[2018-11-26] MEDS: SODIUM CHLORIDE 0.9% (FLUSH) 10 ML SYG IV SCH (21:52)
[2018-11-26] MEDS: SODIUM CHLORIDE 0.9% (FLUSH) 10 ML SYG IV PRN (23:14)
[2018-11-27] MEDS: ALBUTEROL SULFATE 2.5 MG/3 ML VIAL NEB SCH ×6 (00:02→20:13)
[2018-11-27] MEDS: ACETAMINOPHEN 325 MG TAB PO PRN ×3 (01:12→18:30)
[2018-11-27] MEDS: methylPREDNISolone SODIUM SUC 125 MG/2 ML VIAL IV SCH (05:59)
[2018-11-27] MEDS: PANTOPRAZOLE SODIUM IV 40 MG VIAL IV SCH (05:59)
[2018-11-27] MEDS: SODIUM CHLORIDE 0.9% (FLUSH) 10 ML SYG IV PRN ×5 (06:00→23:38)
[2018-11-27] MEDS ORDERED: SUMAtriptan SUCCINATE 50 MG TAB ONE (06:12)
--- NOTE | 2018-11-27 06:34 | RAD ---
Procedure: XR CHEST 2 VIEWS Exam Date: 11/27/2018 Ordering Provider: Cheryl Mensah Clinical Indication: asthma exac Comparison: 11/26/2018 Findings: Cardiomediastinal silhouette is within normal limits. Right middle lobe subsegmental atelectasis and/or infiltrate. Lungs are otherwise clear. No pleural effusion. No pneumothorax. No acute osseous abnormality. Impression: 1. Right middle lobe subsegmental atelectasis and/or infiltrate. Electronically signed by: Roshan Grey MD 11/27/2018 6:33 AM [employer]
[2018-11-27] MEDS: BUDESONIDE NEBS 0.5 MG/2 ML VIAL NEB SCH ×2 (08:49→20:13)
[2018-11-27] MEDS ORDERED: SUMAtriptan SUCCINATE 50 MG TAB PO PRN (09:00)
[2018-11-27] MEDS ORDERED: methylPREDNISolone SODIUM SUC 40 MG/ML VIAL ONE (09:28)
[2018-11-27] MEDS: ESCITALOPRAM 10 MG TAB PO SCH (09:32)
[2018-11-27] MEDS: lamoTRIgine 25 MG TAB PO SCH ×2 (09:32→20:50)
[2018-11-27] MEDS: guaiFENesin ER TAB 600 MG TAB PO SCH ×2 (09:32→20:51)
[2018-11-27] MEDS: LISINOPRIL 10 MG TAB PO SCH ×2 (09:32→20:50)
[2018-11-27] MEDS: ALPRAZolam 0.5 MG TAB PO SCH (09:32)
[2018-11-27] MEDS: SODIUM CHLORIDE 0.9% (FLUSH) 10 ML SYG IV SCH ×2 (09:35→20:53)
[2018-11-27] MEDS: [UNRECOGNIZED DRUG - OTHER] PO SCH ×3 (10:19→20:52)
[2018-11-27] MEDS: MODAFINIL 100 MG PO SCH ×3 (10:19→20:52)
[2018-11-27] MEDS: NON-FORMULARY MEDICATION 1 EA MIS (Lisinopril [Lisinopril] 20 MG) PO SCH (10:20)
[2018-11-27] MEDS ORDERED: cefTRIAXone SODIUM 1 GM VIAL ONE (11:52)
[2018-11-27] MEDS ORDERED: SODIUM CHL 0.9% 50ML MIN-BAG+ 50 ML IVPB ONE (11:53)
[2018-11-27] MEDS: CHLORPHENIRAMINE W/HYDROCODONE 5 ML UD PO PRN ×2 (11:59→23:40)
[2018-11-27] MEDS ORDERED: cefTRIAXone SODIUM 1 GM in SODIUM CHL 0.9% 50ML MIN-BAG+ 50 ML IVPB SCH (12:00)
[2018-11-27] MEDS: methylPREDNISolone SODIUM SUC 40 MG/ML VIAL IV SCH ×3 (12:01→23:37)
[2018-11-27] MEDS ORDERED: diphenhydrAMINE HCL 25 MG CAP ONE (12:33)
[2018-11-27] MEDS ORDERED: diphenhydrAMINE HCL 25 MG CAP PO ONE (12:34)
[2018-11-27] MEDS ORDERED: AZITHROMYCIN IV 500 MG in SODIUM CHLORIDE 0.9% 250ML 250 ML IVPB SCH (13:00)
[2018-11-27] MEDS ORDERED: SODIUM CHLORIDE 0.9% 250ML 250 ML ONE (13:13)
[2018-11-27] MEDS ORDERED: AZITHROMYCIN IV 500 MG VIAL IVPB ONE (13:13)
--- NOTE | 2018-11-27 13:19 | PN ---
SUPERVISING PHYSICIAN: Paul Webster MD DATE: 11/27/18 SUBJECTIVE: The patient is asleep in her hospital bed. She says she feels much better although she says she continues to cough quite frequently despite the Tussionex. She did say overnight she got a fairly significant migraine headache, but she was given her Imitrex and it helped. She continues to have wheezing, shortness of breath and cough, but they have slightly improved. We had a long discussion about asthma, about how to treat it and prevention. OBJECTIVE: VITAL SIGNS: Afebrile with temperature 98. Heart rate 93. Blood pressure 129/78. Respiratory rate 20. O2 saturation 95% on room air. RESPIRATORY: Distant breath sounds throughout with a few expiratory wheezes in the apices, very diminished at the bases. CARDIAC: Regular rate and rhythm. GASTROINTESTINAL: Abdomen is soft, nondistended, nontender. Bowel sounds are positive. EXTREMITIES: No cyanosis, clubbing or edema. NEUROLOGIC: Awake, alert and oriented times three. LABORATORY: CBC is basically within normal limits except she does have a mild left shift on her differential. Electrolytes are within normal limits. Glucose is slightly high at 144. Preliminary blood cultures are negative to date. Chest x-ray shows a right middle lobe segmental atelectasis and/or infiltrate. All other labs and films have been reviewed via the EMR. ASSESSMENT: 1. Acute exacerbation of asthma with failed outpatient therapy. She has been on multiple antibiotics as well as steroid tapers and nebulizer treatments. 2. Developing right middle lobe pneumonia, most likely community acquired. 3. History of migraine headaches. 4. Gastroesophageal reflux disease. 5. Seizure disorder presently on antiseizure medications and followed by Dr. Marx in [place]. 7. Depression and anxiety. 8. Chronic back pain. PLAN: We will continue present supportive care. We will continue her azithromycin and Rocephin as previously ordered. I have slowly tapered her steroids down to 40 mg q.6h. Given her history of asthma, I believe it is better if we go very slowly on her taper. I will hold on labs for now as well as chest x-rays. I have added CPT to her pulmonary hygiene due to the pneumonia. We will continue to monitor the patient closely and follow as needed. Dr. Webster is the collaborating physician and available for consultation. #[id number] [facility]
[2018-11-27] MEDS ORDERED: PANTOPRAZOLE SODIUM TAB 40 MG PO ONE (20:13)
[2018-11-27] MEDS: ENOXAPARIN SODIUM 40 MG/0.4 ML SYG SUBCU SCH (20:49)
[2018-11-27] MEDS: TEMAZEPAM 15 MG CAP PO PRN (20:50)
[2018-11-27] MEDS: DOXYCYCLINE HYCLATE CAP 100 MG CAP PO SCH (20:50)
[2018-11-27] MEDS: SIMVASTATIN 20 MG TAB PO SCH (20:54)
[2018-11-27] MEDS: diazePAM 5 MG TAB PO PRN (20:57)
[2018-11-28] MEDS: ALBUTEROL SULFATE 2.5 MG/3 ML VIAL NEB SCH ×6 (00:45→20:33)
[2018-11-28] MEDS: ACETAMINOPHEN 325 MG TAB PO PRN ×3 (02:38→17:00)
[2018-11-28] MEDS: methylPREDNISolone SODIUM SUC 40 MG/ML VIAL IV SCH ×3 (05:58→20:15)
[2018-11-28] MEDS: SODIUM CHLORIDE 0.9% (FLUSH) 10 ML SYG IV PRN (05:59)
[2018-11-28] MEDS: PANTOPRAZOLE SODIUM TAB 40 MG PO SCH (05:59)
[2018-11-28] MEDS: LISINOPRIL 10 MG TAB PO SCH ×2 (08:30→20:53)
[2018-11-28] MEDS: guaiFENesin ER TAB 600 MG TAB PO SCH ×2 (08:30→20:53)
[2018-11-28] MEDS: ALPRAZolam 0.5 MG TAB PO SCH (08:30)
[2018-11-28] MEDS: DOXYCYCLINE HYCLATE CAP 100 MG CAP PO SCH (08:30)
[2018-11-28] MEDS: ESCITALOPRAM 10 MG TAB PO SCH (08:31)
[2018-11-28] MEDS: lamoTRIgine 25 MG TAB PO SCH ×2 (08:31→20:59)
[2018-11-28] MEDS: MODAFINIL 100 MG PO SCH ×2 (08:31→21:01)
[2018-11-28] MEDS: [UNRECOGNIZED DRUG - OTHER] PO SCH ×3 (08:31→20:52)
[2018-11-28] MEDS: BUDESONIDE NEBS 0.5 MG/2 ML VIAL NEB SCH ×2 (08:34→20:33)
[2018-11-28] MEDS: levoFLOXacin 750MG IV 750 MG in PREMIX BAG 1 BAG IVPB SCH (10:38)
[2018-11-28] MEDS: SODIUM CHLORIDE 0.9% (FLUSH) 10 ML SYG IV SCH ×2 (10:44→20:16)
[2018-11-28] MEDS ORDERED: KETOROLAC TROMETHAMINE INJ 30 MG/ML VIAL IV ONE (11:35)
[2018-11-28] MEDS: CHLORPHENIRAMINE W/HYDROCODONE 5 ML UD PO PRN (11:51)
[2018-11-28] MEDS ORDERED: BENZONATATE PERLES 100 MG CAP PO SCH (12:00)
[2018-11-28] MEDS ORDERED: KETOROLAC TROMETHAMINE INJ 30 MG/ML VIAL IV PRN (18:33)
[2018-11-28] MEDS ORDERED: methylPREDNISolone SODIUM SUC 40 MG/ML VIAL IV SCH (20:00)
[2018-11-28] MEDS: diazePAM 5 MG TAB PO PRN (20:58)
[2018-11-28] MEDS: SIMVASTATIN 20 MG TAB PO SCH (20:59)
[2018-11-28] MEDS: BENZONATATE PERLES 100 MG CAP PO SCH (20:59)
[2018-11-28] MEDS: TEMAZEPAM 15 MG CAP PO PRN (21:00)
[2018-11-28] MEDS: ENOXAPARIN SODIUM 40 MG/0.4 ML SYG SUBCU SCH (21:00)
--- NOTE | 2018-11-28 22:10 | PN ---
DATE: 11/28/18 SUPERVISING PHYSICIAN: Paul Webster M.D. SUBJECTIVE: The patient continues to have some shortness of breath but feels like she has had some improvement. She has a significant cough that has resulted in some discomfort to her chest wall on the left side, but on x-ray she is showing a right middle lobe pneumonia. I discussed utilizing Toradol and splinting the ribs to assist with pain control. I also discussed plan of care and changing antibiotics to monotherapy with Levaquin and hopefully being able to discharge tomorrow. She has remained afebrile. She has had no nausea or vomiting or chest pains. OBJECTIVE: VITAL SIGNS: Temperature 98.2, pulse 93, blood pressure 141/85, respirations 20, satting 95% on room air at rest. I's and O's show a positive balance of 1180 with 2580 in, 1400 out. Weight is 101.6 kg. GENERAL: The patient appear to be comfortable in no acute distress. She is alert but she does have extended coughing events. CHEST: Lung sounds remain diminished throughout but no obvious wheezing. On the right lateral aspect is notable coarse rhonchi sounds compared to the left and both sides are diminished towards the bases. HEART: Regular rate and rhythm. ABDOMEN: Soft, non-tender. Positive bowel sounds. EXTREMITIES: No edema. NEUROLOGIC: She is alert and oriented times three. LABORATORY: CBC has been showing to be stable as well as chemistries. No repeat laboratory today. RADIOLOGY: No repeat radiographic studies. ASSESSMENT: 1. Acute exacerbation of asthma having failed outpatient therapy. 2. Right middle lobe pneumonia, community acquired resulting in exacerbation of asthma as noted in #1. 3. History of migraine headaches requiring Imitrex. 4. Gastroesophageal reflux disease. 5. Seizure disorder currently on antiseizure medications and followed by Dr. Marx in [place]. 7. Depression and anxiety. 8. Chronic back pain. PLAN: Will continue with azithromycin and Rocephin. Today I talked to her about a slow taper of her steroids and will take her Solu-Medrol from 40 mg every 6 hours to every 8 hours in anticipation of discharging on p.o. medication either tomorrow or Friday. Will hold off on her labs as her labs have been showing to be fairly stable. She continues with aggressive pulmonary hygiene and doing well with treatment. Will anticipate hopefully being able to discharge either tomorrow or Friday. Until then will continue to monitor and treat as needed. #[id number] [facility]
[2018-11-29] MEDS: ALBUTEROL SULFATE 2.5 MG/3 ML VIAL NEB SCH ×6 (00:02→20:30)
[2018-11-29] MEDS: CHLORPHENIRAMINE W/HYDROCODONE 5 ML UD PO PRN ×3 (00:24→18:53)
[2018-11-29] MEDS: methylPREDNISolone SODIUM SUC 40 MG/ML VIAL IV SCH (04:20)
[2018-11-29] MEDS: SODIUM CHLORIDE 0.9% (FLUSH) 10 ML SYG IV PRN (04:20)
[2018-11-29] MEDS: ACETAMINOPHEN 325 MG TAB PO PRN (06:14)
[2018-11-29] MEDS: PANTOPRAZOLE SODIUM TAB 40 MG PO SCH (06:14)
[2018-11-29] MEDS: BUDESONIDE NEBS 0.5 MG/2 ML VIAL NEB SCH ×2 (08:39→20:30)
[2018-11-29] MEDS: ALPRAZolam 0.5 MG TAB PO SCH (09:03)
[2018-11-29] MEDS: guaiFENesin ER TAB 600 MG TAB PO SCH ×2 (09:03→21:10)
[2018-11-29] MEDS: ESCITALOPRAM 10 MG TAB PO SCH (09:03)
[2018-11-29] MEDS: BENZONATATE PERLES 100 MG CAP PO SCH ×3 (09:03→21:10)
[2018-11-29] MEDS: LISINOPRIL 10 MG TAB PO SCH ×2 (09:03→21:10)
[2018-11-29] MEDS: MODAFINIL 100 MG PO SCH ×2 (09:03→21:11)
[2018-11-29] MEDS: lamoTRIgine 25 MG TAB PO SCH ×2 (09:03→21:11)
[2018-11-29] MEDS: [UNRECOGNIZED DRUG - OTHER] PO SCH ×3 (09:04→21:11)
[2018-11-29] MEDS: SODIUM CHLORIDE 0.9% (FLUSH) 10 ML SYG IV SCH ×2 (10:00→21:09)
[2018-11-29] MEDS ORDERED: MAGNESIUM HYDROXIDE 30 ML UD PO PRN (11:14)
[2018-11-29] MEDS: levoFLOXacin 750MG IV 750 MG in PREMIX BAG 1 BAG IVPB SCH (13:16)
[2018-11-29] MEDS ORDERED: methylPREDNISolone SODIUM SUC 40 MG/ML VIAL IV ONE (16:00)
[2018-11-29] MEDS: IV SET AND CAP CHANGE INJ INJ SCH (16:19)
[2018-11-29] MEDS ORDERED: [UNRECOGNIZED DRUG - OTHER] IVS ONE (19:17)
[2018-11-29] MEDS ORDERED: KCL IVS ONE (19:17)
--- NOTE | 2018-11-29 19:50 | PN ---
DATE: 11/29/18 SUPERVISING PHYSICIAN: Paul Webster M.D. SUBJECTIVE: The patient has been up ambulating. She still gets short of breath with exertion. She has been afebrile. She still complains of a significant amount of coughing that results in rib pain. She has had good results with Toradol and splinting. She again has been on a slow taper of steroids and it is discussed with her that we will start her on p.o. prednisone tomorrow. Should she do well overnight and can start on the p.o. tomorrow, will hopefully be able to discharge. Also note the patient says she has not yet had a bowel movement but is not having any abdominal pains. OBJECTIVE: VITAL SIGNS: Temperature 97.9, pulse 88, blood pressure 142/80, respirations 20, satting 93% on room air. I's and O's show a positive balance of 1150 with 2,000 in, 850 out. Weight is 101.7 kg. GENERAL: The patient is resting comfortably. Appears to be in no acute distress. CHEST: Lung sounds are notably coarse on the right lung field compared to the left which is fairly clear. Both bases are diminished. There is no wheezing noted. HEART: Regular rate and rhythm. ABDOMEN: Soft, non-tender. Positive bowel sounds. EXTREMITIES: Show to be without any edema. NEUROLOGIC: She is alert and oriented times three. LABORATORY: No new laboratory. No new radiographic studies today. ASSESSMENT: 1. Acute exacerbation of asthma having failed outpatient therapy requiring slow taper of corticosteroids and continued aggressive management with pulmonary toiletry. 2. Right middle lobe pneumonia, community acquired resulting in exacerbation of #1. 3. History of migraine headaches with continuous headaches but responding to Imitrex. 4. Chronic gastroesophageal reflux disease. 5. Seizure disorder currently on antiseizure medications and followed by Dr. Marx in [place]. 7. Depression and anxiety. 8. Chronic back pain. PLAN: Will taper her steroids off today and start on p.o. in the morning. Will continue with antibiotic coverage and aggressive pulmonary hygiene, and anticipate hopefully being able to discharge tomorrow. Until then will continue to monitor and treat as needed. #[id number] [facility]
[2018-11-29] MEDS: ENOXAPARIN SODIUM 40 MG/0.4 ML SYG SUBCU SCH (21:07)
[2018-11-29] MEDS: diazePAM 5 MG TAB PO PRN (21:10)
[2018-11-29] MEDS: SIMVASTATIN 20 MG TAB PO SCH (21:10)
[2018-11-29] MEDS: TEMAZEPAM 15 MG CAP PO PRN (21:10)
[2018-11-30] MEDS: ALBUTEROL SULFATE 2.5 MG/3 ML VIAL NEB SCH ×3 (00:15→07:58)
[2018-11-30] MEDS: PANTOPRAZOLE SODIUM TAB 40 MG PO SCH (06:17)
[2018-11-30] MEDS: CHLORPHENIRAMINE W/HYDROCODONE 5 ML UD PO PRN (06:27)
--- NOTE | 2018-11-30 07:13 | RAD ---
CHEST 11/30/2018 at 0645 hours CLINICAL HISTORY: Asthma exacerbation. Pneumonia. COMPARISON: Chest 11/27/2018 TECHNIQUE: Frontal and lateral Chest. FINDINGS: [Normal cardiac size. Pulmonary vasculature appears normal. Normal cardiomediastinal contours. Lungs are hyperinflated. There are curvilinear densities within the lingula and left lower lobe due to discoid atelectasis. Pleural spaces are clear. No pneumothorax. Unremarkable soft tissues. Mild thoracic spondylosis. IMPRESSION: 1. No acute chest disease. 2. Left basilar atelectasis. 3. COPD. Electronically signed by: Dipika Lazo DO 11/30/2018 7:[address] [facility]
[2018-11-30] MEDS: BUDESONIDE NEBS 0.5 MG/2 ML VIAL NEB SCH (07:58)
[2018-11-30] MEDS: guaiFENesin ER TAB 600 MG TAB PO SCH (08:33)
[2018-11-30] MEDS: ESCITALOPRAM 10 MG TAB PO SCH (08:33)
[2018-11-30] MEDS: BENZONATATE PERLES 100 MG CAP PO SCH (08:34)
[2018-11-30] MEDS: lamoTRIgine 25 MG TAB PO SCH (08:34)
[2018-11-30] MEDS: ALPRAZolam 0.5 MG TAB PO SCH (08:34)
[2018-11-30] MEDS: LISINOPRIL 10 MG TAB PO SCH (08:34)
[2018-11-30] MEDS: ACETAMINOPHEN 325 MG TAB PO PRN (08:35)
[2018-11-30] MEDS: MODAFINIL 100 MG PO SCH (08:38)
[2018-11-30] MEDS: levoFLOXacin 750MG IV 750 MG in PREMIX BAG 1 BAG IVPB SCH (08:38)
[2018-11-30] MEDS: SODIUM CHLORIDE 0.9% (FLUSH) 10 ML SYG IV SCH (08:38)
[2018-11-30] MEDS: [UNRECOGNIZED DRUG - OTHER] PO SCH (08:38)
[2018-11-30] MEDS ORDERED: BIFIDOBACTERIUM INFANTIS 4 MG CAP PO SCH (09:00)
[2018-11-30] MEDS ORDERED: predniSONE 20 MG TAB PO SCH (09:00)
[2018-11-30 10:05] VITALS: BP 136/79; TEMP 98.4; O2SAT 94
--- NOTE | 2018-12-08 08:14 | DS ---
SUPERVISING PHYSICIAN: Bennie Sahni MD ADMISSION DIAGNOSIS: 1. Acute exacerbation of asthma with failed outpatient therapy. She has seen her primary care physician in clinic times 2. She has been to an Urgent Care Clinic once and she has received antibiotics as well as multiple steroid tapers. 2. History of migraine headaches. 3. Gastroesophageal reflux disease. 4. Seizure disorder presently on antiseizure medications and followed by Dr. Marx in [place]. 5. Depression and anxiety. 6. Chronic back pain. DISCHARGE DIAGNOSIS: 1. Acute exacerbation of asthma having failed outpatient therapy requiring slow taper of corticosteroids and aggressive pulmonary toiletry, showing slow improvement prior to discharge. 2. Right middle lobe pneumonia, community acquired, resulting in exacerbation of #1. 3. History of migraine headaches. 4. Chronic gastroesophageal reflux disease, stable. 5. Seizure disorder with no current seizures during hospitalization, followed by Dr. Marx in [place]. 7. Depression and anxiety. 8. Chronic back pain. REASON FOR ADMISSION: This is a 53-year-old female patient with a long history of asthma. Approximately 3 months ago, she was sick for 6 weeks with similar symptoms, but got over it about 3 weeks ago. Then approximately 10 days ago, she had another upper respiratory type infection with an exacerbation of her asthma. She actually went to see Dr. Escobar 1 week ago. He gave her a Z-Santhosh and breathing treatments at that time. She continued to worsen to the point that on Friday she went to Urgent Care. She received a shot of steroids as well as a prednisone taper at that facility. She was urged to go to the hospital but she had refused at that time. She called Dr. Escobar, her primary care physician, and saw him on Friday. He gave her a higher dose of the steroid taper as well as Spiriva and Tussionex. She worsened to the point where she saw Dr. Escobar again today. Due to her extreme shortness of breath with exacerbation of asthma as well as failed outpatient treatment, she was a direct admit to the hospital. In the hospital, her vital signs showed a temperature of 98.4 with pulse rate that was 98, blood pressure 158/99, respiratory rate 20, O2 saturation was 96%. She complained of coughing so hard that she felt like she pulled a muscle on the right side of her rib cage. She also has had chest congestion and productive cough with a headache. She has seasonal allergies. Blood cultures were drawn as well as lab. WBCs were 10 with hemoglobin 13.8 and hematocrit 40.8, but she did have a left shift on her differential. Sodium 144, potassium 3.1, chloride 113, carbon dioxide 20, BUN 19, creatinine 0.93, glucose 122. Liver enzymes were basically within normal limits. Urinalysis was within normal limits. Chest x-ray, single AP portable upright view of the chest shows cardiac silhouette and pulmonary vasculature to be within normal limits. The lungs are normally aerated and clear. No obvious pleural effusion or pneumothorax is seen. She was started on azithromycin and Rocephin. She was also given 125 mg of Solu-Medrol. She was also given scheduled DuoNeb with p.r.n. albuterol. She was admitted to the hospital in stable condition. LABORATORY: White count on admission was 10,000, discharge was 7,800. Hemoglobin and hematocrit were stable and on discharge were 13.8 and 41.1, respectively, with platelet count 260,000. Differential did show a left shift on admission, no bands and was resolving prior to discharge after initiation of treatment. Chemistries on admission showed electrolyte imbalance with potassium 3.1, normal sodium of 144, but carbon dioxide 20. BUN 19, creatinine 0.93. Liver functions within normal limits. After treatment and prior to discharge, electrolytes had normalized with potassium 3.7, carbon dioxide 22 and BUN 15, creatinine 0.78. Blood sugar 144. Urinalysis was within normal limits. MICROBIOLOGY: She had two sets of blood cultures that were negative after five days. RADIOLOGY: Chest x-ray on admission, single-view chest per radiologic interpretation showed normally aerated and clear with no obvious effusions or pneumothorax noted. She had a repeat x-ray the day after admission and per radiologic interpretation of a two-view chest showed right middle lobe segmental atelectasis and/or infiltrate. Final x-ray on 11/30/18, on date of discharge, per radiologic interpretation of a two-view chest showed left basilar atelectasis, curvilinear densities within the lingula and left lower lobe due to discoid atelectasis and noted changes of chronic obstructive pulmonary disease. HOSPITAL COURSE: Ms. Guardado was admitted as noted on 11/26/18 for exacerbation of chronic obstructive pulmonary disease and started on antibiotics, corticosteroids and aggressive pulmonary hygiene. She showed slow improvement and required a slow taper of her steroids and continued antibiotic coverage with azithromycin, Rocephin and doxycycline and then after x-ray change clinically, she was changed to levofloxacin. She was tapered off Solu-Medrol to oral prednisone and was clinically stable and improving to the point where she was able to continue with outpatient management. PLAN: Ms. Guardado was discharged on 11/30/18 with instructions to followup with Dr. Escobar. She was to resume her home medications as instructed and take new medication as directed. She was given warning to return to the hospital should she have any concerning symptoms. Diet at discharge was regular diet as tolerated. Activity to increase as tolerated. New prescriptions at discharge included: 1. Tessalon Perles 100 mg 3 times a day as needed, #20, no refills. 2. Align 4 mg daily, [id number]. 3. Guaifenesin 600 mg twice daily, [id number]. 4. Levaquin 750 mg for an additional 2 days, no refills. 5. Prednisone taper 10 mg tablets over 10 days. All other medications as prior to admission were continued. CONDITION AT DISCHARGE: Stable and improving. DISPOSITION: The patient was discharged home to family care. #[id number] [facility]
== END 2018-11-30 12:10 | disposition home or self-care (01) | DRG 202 ==
LOC: MS 10:51
PROVIDERS: ADMIT Nurse Practitioner Acute Care; ATTEND Nurse Practitioner Family
DX: J45.901 Unspecified asthma with (acute) exacerbation (principal); J18.9 Pneumonia, unspecified organism; G40.909 Epilepsy, unspecified, not intractable, without status epilepticus; F41.8 Other specified anxiety disorders; E66.9 Obesity, unspecified; G89.29 Other chronic pain; M54.9 Dorsalgia, unspecified; K21.9 Gastro-esophageal reflux disease without esophagitis; G43.909 Migraine, unspecified, not intractable, without status migrainosus; Z88.5 Allergy status to narcotic agent

== ENCOUNTER 2018-12-29 19:08 | Emergency (ER) | payer OTHER ==
--- NOTE | 2018-12-29 19:22 | ED.PDOC ---
History of Present Illness - General Chief Complaint: Respiratory Problem Stated Complaint: cough, fever Time Seen by Provider: 12/29/18 19:15 Source: patient Exam Limitations: no limitations - History of Present Illness Comments: Yesenia Guardado 53 y/o female with history of asthma stated that she had been having non productive cough for the last 2 days and went to her Md today was noted to have fever.Started had 2 hospital admissions for pneumonia in the past.Had flu and pneumonia immunizations UTD. Timing/Duration: yesterday Cough Quality/Degree: dry cough Possible Cause: chronic episodes Improving Factors: nothing Worsening Factors: nothing Associated Symptoms: nasal congestion, other - vomiting Allergies/Adverse Reactions: Allergies Cephalosporins Allergy (Intermediate, Verified 11/28/18 09:12) Rash Ceftriaxone Allergy (Mild, Verified 12/01/18 12:01) Itching Codeine Allergy (Verified 05/12/18 15:28) Home Medications: Ambulatory Orders Metaproterenol Sulfate 20 mg PO TID 08/07/15 Alprazolam [Xanax] 1 mg PO DAILY 04/05/18 Lovastatin 40 mg PO BEDTIME 04/05/18 Albuterol Sulfate [Proair Hfa] 2 puff INH Q6H PRN 11/26/18 Diazepam 5 mg PO BID 11/26/18 Escitalopram [Lexapro] 10 mg PO DAILY 11/26/18 Lamotrigine 25 mg PO BID 11/26/18 Lisinopril 20 mg PO BID 11/26/18 Modafinil 100 mg PO BID 11/26/18 Sumatriptan Succinate [Imitrex] 100 mg PO PRN PRN 11/26/18 Benzonatate Perles [Tessalon Perles] 100 mg PO TID PRN #20 cap 11/30/18 Bifidobacterium Infantis [Align] 4 mg PO DAILY cap 11/30/18 Levofloxacin [Levaquin] 750 mg PO DAILY #2 tablet 11/30/18 Prednisone See Taper PO DAILY #30 tab 11/30/18 guaiFENesin ER TAB [Mucinex Tab] 1,200 mg PO BID tab 11/30/18 Azithromycin [Zithromax Z-Santhosh] 500 mg PO DAILY 3 Days #6 tab 12/29/18 Review of Systems - Review of Systems Constitutional: States: see HPI, fever EENTM: States: see HPI, nose congestion Respiratory: States: see HPI, cough Cardiology: States: no symptoms reported Gastrointestinal/Abdominal: States: no symptoms reported Genitourinary: States: no symptoms reported Musculoskeletal: States: no symptoms reported Skin: States: no symptoms reported Neurological: States: no symptoms reported All other Systems: Reviewed and Negative, No Change from Baseline Past Medical History (General) - Patient Medical History Hx Seizures: Yes - last week Hx Stroke: No Hx Asthma: Yes Hx of COPD: No Hx Cardiac Disorders: No Hx Congestive Heart Failure: No Hx Pacemaker: No Hx Hypertension: Yes Hx Thyroid Disease: No Hx Diabetes: No Hx Renal Disease: No Hx MRSA: No Surgical History: other - hysterectomy,knee,lumbar spine - Vaccination History Hx Influenza Vaccination: Yes Hx Pneumococcal Vaccination: Yes - Social History Hx Tobacco Use: No Hx Chewing Tobacco Use: No Hx Alcohol Use: Yes - 6-8 bottle everyday. last drink new years kassandra. Hx Substance Use: No Hx Depression: No Hx Physical Abuse: No Hx Emotional Abuse: No Hx Suspected Abuse: No Family Medical History - Family History Mother Family History: Unknown Living Status: Hx Family Cancer: Yes Father Living Status: Still Living Hx Family Asthma: Yes Hx Family Hypertension: Yes Hx Family Diabetes: Yes Physical Exam - Physical Exam General Appearance: Alert, Anxious, Comfortable, No apparent distress Eye Exam: bilateral normal ENT Exam: normal ENT inspection, hearing grossly normal, TMs normal, pharynx normal, nasal congestion Neck: non-tender, supple, normal inspection, trachea midline Respiratory: chest non-tender, no respiratory distress, wheezing - mild Cardiovascular/Chest: normal peripheral pulses, regular rate, rhythm, no murmur, tachycardia Gastrointestinal/Abdominal: non tender, soft, no organomegaly Extremity: no pedal edema, no calf tenderness Neurologic: alert, oriented x 3 Skin Exam: normal color, warm/dry Progress - Progress Progress: 12/29/18 19:33 Vital Signs - 8 hr 12/29/18 19:16 Temperature 99.1 F Pulse Rate [ 122 H Right] Respiratory 24 Rate Blood Pressure 150/101 [Left Arm] O2 Sat by Pulse 97 Oximetry - Results/Orders Results/Orders: 12/29/18 19:23 IV Care:Saline Lock per Protoc QSHIFT 12/30/18 09:[address] [facility] Daily Laboratory Results - last 24 hr 12/29/18 12/29/18 19:39 19:39 WBC 8.9 RBC 3.83 L Hgb 13.0 Hct 38.6 MCV 100.8 H MCH 33.9 H MCHC 33.8 RDW 14.3 Plt Count 240 MPV 7.6 Absolute Neuts (auto) 6.80 Absolute Lymphs (auto) 1.40 Absolute Monos (auto) 0.50 Absolute Eos (auto) 0.20 Absolute Basos (auto) 0.10 Neutrophils % 76.9 Lymphocytes % 15.3 L Monocytes % 5.3 Eosinophils % 1.7 Basophils % 0.8 PT 9.8 INR 0.98 PTT (SP) 25.0 Sodium 140 Potassium 3.3 L Chloride 104 Carbon Dioxide 25 Anion Gap 14.3 BUN 15 Creatinine 1.01 BUN/Creatinine Ratio 14.9 Random Glucose 104 Serum Osmolality 280.5 Lactic Acid 1.5 Calcium 8.7 Magnesium 2.1 Total Bilirubin 0.6 Direct Bilirubin < 0.1 Indirect Bilirubin 0.5 AST 21 ALT 23 Alkaline Phosphatase 74 Creatine Kinase 90 CK-MB (CK-2) 2.3 CK-MB (CK-2) % Not Reportable Troponin I < 0.02 Serum Total Protein 7.3 Albumin 3.7 Lipase 23 Flu swab-negative;Discuss all test results with patient - EKG/XRAY/CT XRAY: chest - no acute abnormalities Departure - Departure Clinical Impression: Upper respiratory infection of multiple sites Time of Disposition: 20:58 Disposition: Discharge to Home or Self Care Departure Forms: ED Discharge - Pt. Copy, Patient Portal Self Enrollment Instructions: Viral Upper Respiratory Infection, Adult (DC), Cough, Runny Nose, and the Common Cold (DC) Referrals: Francisco J Escobar III, MD [Primary Care Provider] - 1-2 Weeks Prescriptions: Azithromycin [Zithromax Z-Santhosh] 500 mg PO DAILY 3 Days #6 tab Home Medications: Ambulatory Orders Metaproterenol Sulfate 20 mg PO TID 08/07/15 Alprazolam [Xanax] 1 mg PO DAILY 04/05/18 Lovastatin 40 mg PO BEDTIME 04/05/18 Albuterol Sulfate [Proair Hfa] 2 puff INH Q6H PRN 11/26/18 Diazepam 5 mg PO BID 11/26/18 Escitalopram [Lexapro] 10 mg PO DAILY 11/26/18 Lamotrigine 25 mg PO BID 11/26/18 Lisinopril 20 mg PO BID 11/26/18 Modafinil 100 mg PO BID 11/26/18 Sumatriptan Succinate [Imitrex] 100 mg PO PRN PRN 11/26/18 Benzonatate Perles [Tessalon Perles] 100 mg PO TID PRN #20 cap 11/30/18 Bifidobacterium Infantis [Align] 4 mg PO DAILY cap 11/30/18 Levofloxacin [Levaquin] 750 mg PO DAILY #2 tablet 11/30/18 Prednisone See Taper PO DAILY #30 tab 11/30/18 guaiFENesin ER TAB [Mucinex Tab] 1,200 mg PO BID tab 11/30/18 Azithromycin [Zithromax Z-Santhosh] 500 mg PO DAILY 3 Days #6 tab 12/29/18 Additional Instructions: May take over the counter cough /cold medicine nightime and daytime formulation and over the counter Nasacort or Flonase steroid nose spry as directed on package instruction;Need to use nasal saline rinse to irrigate both nostrils as needed 3 x a day;Continue with all home medications;May also take Benadryl 25 mg 2capsules 3 x a day;Follow up with primary Md 01 January 2019 for re check
[2018-12-29] MEDS ORDERED: LEVALBUTEROL NEBS 1.25 MG/3 ML VIAL NEB ONE (19:23)
[2018-12-29] MEDS ORDERED: ONDANSETRON INJ 4 MG/2 ML VIAL IV ONE (19:23)
[2018-12-29] MEDS ORDERED: methylPREDNISolone SODIUM SUC 125 MG/2 ML VIAL IV ONE (19:24)
[2018-12-29] MEDS ORDERED: LACTATED RINGERS 1,000 ML IVS ONE (19:29)
[2018-12-29] MEDS ORDERED: BENZONATATE PERLES 100 MG CAP PO ONE (19:55)
--- NOTE | 2018-12-29 19:59 | RAD ---
EXAM DESCRIPTION: Chest,1 View CLINICAL HISTORY: cough COMPARISON: 11/30/2018 FINDINGS: Cardiac silhouette is within normal limits. There is no focal parenchymal or pleural disease. Visualized osseous structures are within normal limits. IMPRESSION: No evidence of acute cardiopulmonary disease. Electronically signed by: Jared Schulz 12/29/2018 7:57 PM [facility]
[2018-12-29 21:26] VITALS: BP 148/88; TEMP 99.2; O2SAT 98
== END 2018-12-29 21:26 | disposition home or self-care (01) ==
LOC: ER 19:08
DX: J06.9 Acute upper respiratory infection, unspecified (principal); J45.909 Unspecified asthma, uncomplicated; R56.9 Unspecified convulsions; I10 Essential (primary) hypertension; Z79.899 Other long term (current) drug therapy; Z87.01 Personal history of pneumonia (recurrent); Z88.5 Allergy status to narcotic agent; Z88.8 Allergy status to other drugs, medicaments and biological substances
CPT/HCPCS: 36415; 71045; 80048; 80076; 82550; 82553; 83605; 83690; 84484; 85025; 85610; 85730; 87502; 94640; J2405; J2930; J7120; J7614

== ENCOUNTER → 2019-02-03 | Outpatient (CLI) | payer OTHER ==
--- NOTE | 2019-02-08 13:45 | MAM ---
EXAM DESCRIPTION: 3D Screening BILATERAL : Digital Mammography. CLINICAL HISTORY: 54 years Female SCREENING . No complaints. No personal or family history of breast cancer. Childbirth. Postmenopausal for years. No HRT. Lifetime risk of developing breast cancer (Tyrer-Cuzick model)(%): 7.8. COMPARISON: Bilateral screening 2-D mammography 05/16/2011.. TECHNIQUE: Bilateral CC and MLO projection full-field images, digital tomosynthesis mammographic technique Bilateral digital 2-D full-field MLO images. CAD not available for tomosynthesis or 2-D images. FINDINGS: The breast parenchymal density pattern is: Scattered areas of fibroglandular density. No skin thickening or nipple retraction. Oval-shaped mass density slightly denser than the surrounding fibroglandular tissues with partially lobulated margins in the posterior third of the upper-outer quadrant of the right breast at the 9:30 clock position, approximately 13 cm from the nipple. Not well seen on the prior study. No new focal, stellate mass or density, focal asymmetry , and no suspicious microcalcifications left breast. IMPRESSION: BI-RADS CATEGORY: 0 - INCOMPLETE- Need additional imaging evaluation. FOLLOW-UP: Recall for additional imaging: Targeted right breast ultrasound region of interest discussed above. Consider diagnostic tomosynthesis right breast if indicated by ultrasound images.. Written communication concerning the IMPRESSION and Follow-up, will be mailed to the patient and referring health care provider. Electronically signed by: Jared Mccarthy MD 02/08/2019 1:41 PM CDT
== END ==
LOC: MAMMO 14:00
PROVIDERS: ATTEND Family Medicine
DX: Z12.31 Encounter for screening mammogram for malignant neoplasm of breast (principal)

== ENCOUNTER → 2019-02-17 | Outpatient (CLI) | payer OTHER ==
--- NOTE | 2019-02-17 15:50 | US ---
EXAM DESCRIPTION: Breast,Right: Ultrasound CLINICAL HISTORY: 54 yearsFemaleABNORMAL MAMMO. Tender in the posterior upper outer quadrant of the right breast. COMPARISON: Bilateral screening digital breast tomosynthesis 02/03/2019. TECHNIQUE: Transcutaneous scanning of the right breast utilizing gomez-scale and Doppler modes. Scanning performed by the billing specialist ; observation by Dr. Mccarthy. FINDINGS: Scanning of the right breast upper outer quadrant posterior. Mostly fatty echotexture with minimal fibroglandular tissues. Hypoechoic mass measuring 6.2 x 3.3 x 4.6 mm at the 10:00 sector, 11 cm from the nipple. Wider than tall orientation and not vascular. Mostly posterior acoustic shadowing. More likely a reactive lymph node or fibroadenoma. No distinct cyst. No parenchymal edema or large calcifications. No overlying skin changes. Normal vascularity. IMPRESSION: BI-RADS CATEGORY: 3 - PROBABLY BENIGN. Management: Short interval (6-month) follow-up targeted right breast ultrasound and diagnostic digital right breast mammography.. The FINDINGS and the FOLLOW-UP plan were reviewed in person with the patient after the examination. Written communication explaining the IMPRESSION and FOLLOW-UP will be mailed to the patient and referring care provider. Electronically signed by: Jared Mccarthy MD 02/17/2019 3:47 PM CDT
== END ==
LOC: MAMMO 13:39
PROVIDERS: ATTEND Family Medicine
DX: R92.2 Inconclusive mammogram (principal)

== ENCOUNTER 2019-03-09 18:23 | Emergency (ER) | payer OTHER ==
[2019-03-09] MEDS: diphenhydrAMINE HCL 50 MG/ML VIAL IV ONE ×2 (18:36→19:25)
--- NOTE | 2019-03-09 18:38 | ED.PDOC ---
History of Present Illness - General Chief Complaint: Allergic Reaction Time Seen by Provider: 03/09/19 18:34 Source: patient Exam Limitations: no limitations - History of Present Illness Initial Comments: PT STATES SHE WAS EATING GREEN BEANS AND FISH WHEN SHE BEGAN TO "FEEL FUNNY". SHE CANT DESCRIBE IT OTHER THAN THAT. STATES SHE HAS A LOT OF ALLERGIES BUT NONE TO FOOD. Severity: moderate Improving Factors: nothing Worsening Factors: nothing Associated Symptoms: denies symptoms Allergies/Adverse Reactions: Allergies Cephalosporins Allergy (Intermediate, Verified 03/09/19 18:58) Rash Ceftriaxone Allergy (Mild, Verified 03/09/19 18:58) Itching Codeine Allergy (Verified 03/09/19 18:58) Home Medications: Ambulatory Orders RX: Metaproterenol Sulfate 20 mg PO TID 08/07/15 RX: Alprazolam [Xanax] 1 mg PO DAILY 04/05/18 RX: Lovastatin 40 mg PO BEDTIME 04/05/18 RX: Albuterol Sulfate [Proair Hfa] 2 puff INH Q6H PRN 11/26/18 RX: Diazepam 5 mg PO BID 11/26/18 RX: Escitalopram [Lexapro] 10 mg PO DAILY 11/26/18 RX: Lamotrigine 25 mg PO BID 11/26/18 RX: Lisinopril 20 mg PO BID 11/26/18 RX: Modafinil 100 mg PO BID 11/26/18 RX: Sumatriptan Succinate [Imitrex] 100 mg PO PRN PRN 11/26/18 Benzonatate Perles [Tessalon Perles] 100 mg PO TID PRN #20 cap 11/30/18 Levofloxacin [Levaquin] 750 mg PO DAILY #2 tablet 11/30/18 RX: Bifidobacterium Infantis [Align] 4 mg PO DAILY cap 11/30/18 RX: Prednisone See Taper PO DAILY #30 tab 11/30/18 RX: guaiFENesin ER TAB [Mucinex Tab] 1,200 mg PO BID tab 11/30/18 Azithromycin [Zithromax Z-Santhosh] 500 mg PO DAILY 3 Days #6 tab 12/29/18 RX: Prednisone [Deltasone] 20 mg PO BID #7 tab 03/10/19 Review of Systems - Review of Systems Constitutional: Denies: chills, fever EENTM: Denies: throat swelling, mouth swelling Respiratory: States: cough, short of breath, wheezing Cardiology: Denies: chest pain, palpitations, syncope Gastrointestinal/Abdominal: States: nausea, vomiting. Denies: abdominal pain Musculoskeletal: States: no symptoms reported Skin: States: other - DIAPHORESIS Neurological: States: no symptoms reported Endocrine: States: no symptoms reported Hematologic/Lymphatic: States: no symptoms reported Past Medical History (General) - Patient Medical History Hx Seizures: Yes - last week Hx Stroke: No Hx Asthma: Yes Hx of COPD: No Hx Cardiac Disorders: No Hx Congestive Heart Failure: No Hx Pacemaker: No Hx Hypertension: Yes Hx Thyroid Disease: No Hx Diabetes: No Hx Renal Disease: No Hx MRSA: No - Vaccination History Hx Influenza Vaccination: Yes Hx Pneumococcal Vaccination: Yes - Social History Hx Tobacco Use: No Hx Chewing Tobacco Use: No Hx Alcohol Use: Yes - 6-8 bottle everyday. last drink new years kassandra. Hx Substance Use: No Hx Depression: No Hx Physical Abuse: No Hx Emotional Abuse: No Hx Suspected Abuse: No Family Medical History - Family History Mother Family History: Unknown Living Status: Hx Family Cancer: Yes Father Living Status: Still Living Hx Family Asthma: Yes Hx Family Hypertension: Yes Hx Family Diabetes: Yes Physical Exam - Physical Exam General Appearance: Obese, Other - ANXIOUS, MOD DISTRESS. IS ABLE TO PROVIDE HX AND SPEAK IN COMPLETE SENTENCES. DOES HAVE SOME AUDIBLE EXP WHEEZES. Eye Exam: bilateral normal Ears, Nose, Throat: normal ENT inspection, normal pharynx - WIDELY PATENT, POSSIBLY SOME MILD EDEMA BUT PT HAVING DIFFICULTY COOPERATING WITH EXAM SO SOMEWHAT DIFFICULT TO ASSESS BUT NO AIRWAY COMPROMISE. , other - TM'S NL. Neck: non-tender, full range of motion, supple Respiratory: normal breath sounds, other - ACTIVELY COUGHING, OCC EXP WHEEZE, NO RALES, NO RHONCHI, Cardiovascular/Chest: no murmur, tachycardia Gastrointestinal/Abdominal: normal bowel sounds, non tender, soft, no organomegaly Back Exam: normal inspection, no CVA tenderness, no vertebral tenderness Extremity: normal range of motion, non-tender, normal inspection Skin Exam: normal color, warm/dry, cyanosis Lymphatic: no adenopathy Progress - Progress Progress: 03/09/19 19:37 VSS, SATS NL, STILL COUGHING, APPEARS ANXIOUS, O/P NL POSSIBLE SL EDEMA OF UVULA BUT POST PHARYNX REMAINS WIDELY PATENT. LCTA. 03/09/19 20:34 STILL COUGHING, WILL HAVE COMPLETE W/U. LCTA, O/P NL, SATS 93% RA. 03/09/19 22:36 STILL COUGHING BUT BETTER AFTER NEB. 03/10/19 00:14 CTA CHEST NEG FOR PE. RLL ATELECTASIS - EKG/XRAY/CT EKG: Sinus - RATE 92, NL AXIS, NL INTERVALS, , no ST T wave changes - NAIP, Unchanged from 09/2018 XRAY: chest - MILD RLL ATELECTASIS VS INIFLTRATE. Departure - Departure Clinical Impression: Acute bronchospasm Hypertension Qualifiers: Hypertension type: essential hypertension Qualified Code(s): I10 - Essential (primary) hypertension RAD (reactive airway disease) Qualifiers: Asthma severity: moderate Asthma complication type: with acute exacerbation Disposition: Discharge to Home or Self Care Condition: Good Departure Forms: ED Discharge - Pt. Copy, Patient Portal Self Enrollment Instructions: Asthma in Adults Referrals: Francisco J Escobar III, MD [Primary Care Provider] - 1-2 Weeks Prescriptions: RX: Prednisone [Deltasone] 20 mg PO BID #7 tab Home Medications: Ambulatory Orders RX: Metaproterenol Sulfate 20 mg PO TID 08/07/15 RX: Alprazolam [Xanax] 1 mg PO DAILY 04/05/18 RX: Lovastatin 40 mg PO BEDTIME 04/05/18 RX: Albuterol Sulfate [Proair Hfa] 2 puff INH Q6H PRN 11/26/18 RX: Diazepam 5 mg PO BID 11/26/18 RX: Escitalopram [Lexapro] 10 mg PO DAILY 11/26/18 RX: Lamotrigine 25 mg PO BID 11/26/18 RX: Lisinopril 20 mg PO BID 11/26/18 RX: Modafinil 100 mg PO BID 11/26/18 RX: Sumatriptan Succinate [Imitrex] 100 mg PO PRN PRN 11/26/18 Benzonatate Perles [Tessalon Perles] 100 mg PO TID PRN #20 cap 11/30/18 Levofloxacin [Levaquin] 750 mg PO DAILY #2 tablet 11/30/18 RX: Bifidobacterium Infantis [Align] 4 mg PO DAILY cap 11/30/18 RX: Prednisone See Taper PO DAILY #30 tab 11/30/18 RX: guaiFENesin ER TAB [Mucinex Tab] 1,200 mg PO BID tab 11/30/18 Azithromycin [Zithromax Z-Santhosh] 500 mg PO DAILY 3 Days #6 tab 12/29/18 RX: Prednisone [Deltasone] 20 mg PO BID #7 tab 03/10/19
[2019-03-09] MEDS ORDERED: ONDANSETRON INJ 4 MG/2 ML VIAL ONE (18:44)
[2019-03-09] MEDS ORDERED: EPINEPHrine HCL AMP 1 MG/ML AMP SUBCU ONE (18:47)
[2019-03-09] MEDS ORDERED: methylPREDNISolone SODIUM SUC 125 MG/2 ML VIAL IV ONE (18:47)
[2019-03-09] MEDS ORDERED: ONDANSETRON INJ 4 MG/2 ML VIAL IV ONE (18:47)
[2019-03-09] MEDS ORDERED: IPRATROPIUM/ALBUTEROL 3 ML VIAL NEB ONE (18:47)
[2019-03-09] MEDS ORDERED: FAMOTIDINE IV PREMIX 20 MG in PREMIX BAG 1 BAG IVPB ONE (19:38)
[2019-03-09] MEDS ORDERED: FAMOTIDINE IV PREMIX 50 ML IVPB ONE (19:42)
[2019-03-09] MEDS ORDERED: SODIUM CHL 0.9% 50ML VIAL 12 ML, ALBUTEROL SULFATE NEBS 7.5 MG NEB ONE ×2 (20:35)
[2019-03-09] MEDS ORDERED: SODIUM CHLORIDE 0.9% 50 ML VIAL ONE (20:50)
[2019-03-09] MEDS ORDERED: ALBUTEROL SULFATE 2.5 MG/3 ML VIAL NEB ONE (20:50)
--- NOTE | 2019-03-09 20:50 | RAD ---
EXAM DESCRIPTION: Chest,1 View CLINICAL HISTORY: 54 years Female COUGH, SOB. COMPARISON: December 29, 2018. TECHNIQUE: AP view of the chest was obtained. FINDINGS: Cardiac size is within normal limits. Central vessels are not increased. Mild airspace opacities lower lungs bilaterally right greater than left. No effusions bilaterally. No consolidation. No pneumothorax. IMPRESSION: Atelectatic change versus infiltrate lower lungs bilaterally right greater than left. Electronically signed by: Tata Roberts MD 03/09/2019 8:47 PM CDT
[2019-03-09] MEDS ORDERED: PROMETHAZINE SYP 6.25 MG/5 ML 5 ML UD PO ONE (22:53)
[2019-03-09] MEDS ORDERED: PROMETHAZINE W/CODEINE SYR 5 ML UD PO ONE (22:56)
[2019-03-09] MEDS ORDERED: CHLORPHENIRAMINE W/HYDROCODONE 5 ML UD PO ONE (22:59)
[2019-03-10 00:07] VITALS: BP 123/77; TEMP 98.1; O2SAT 96
--- NOTE | 2019-03-10 00:09 | CT ---
CLINICAL HISTORY: SOB, ELEVATED D DIMER, R/O PE COMPARISON: None. TECHNIQUE: CT CHEST ANGIOGRAPHY WITH IV CONTRAST on 03/09/2019 11:33 PM CDT. MIPS reconstructions were generated. This exam was performed according to our departmental dose-optimization program, which includes automated exposure control, adjustment of the mA and/or kV according to patient size and/or use of iterative reconstruction technique. MIP images were generated. FINDINGS: Thoracic aorta is normal in course and caliber without aneurysm or dissection. Pulmonary arteries are adequately opacified without acute or chronic filling defects. The heart is mildly enlarged. There is no pericardial effusion. Intrathoracic lymph nodes are not enlarged. There is no pleural effusion, pleural thickening or pneumothorax. Central airways are patent. There is predominantly right basilar platelike atelectasis. There are diffuse mild mosaic attenuation changes within the lungs. There are no acute abnormalities within the limited images of the upper abdomen. There are no acute osseous findings. No suspicious bony lesions. IMPRESSION: No aortic dissection or aneurysm. No pulmonary embolus. No definite pneumonia. Electronically signed by: Trey Quiñones MD 03/10/2019 12:05 AM CDT
== END 2019-03-10 00:25 | disposition home or self-care (01) ==
LOC: ER 18:23
DX: J45.41 Moderate persistent asthma with (acute) exacerbation (principal); I10 Essential (primary) hypertension; R56.9 Unspecified convulsions; Z79.899 Other long term (current) drug therapy; Z88.1 Allergy status to other antibiotic agents; Z88.5 Allergy status to narcotic agent
CPT/HCPCS: 36415; 71045; 71275; 80053; 83880; 84484; 85025; 85379; 93005; 94640; 94644; A4216; J2060; J2405; J2930; J3490; J7611; J7620

== ENCOUNTER → 2019-03-12 | Outpatient (CLI) | payer OTHER | LOC: LAB.O 09:57 | PROVIDERS: ATTEND Family Medicine | DX: R23.3 Spontaneous ecchymoses (principal) ==

== ENCOUNTER → 2019-08-03 | Outpatient (CLI) | payer OTHER | LOC: GMAL 10:33 | PROVIDERS: ATTEND Family Medicine | DX: D51.3 Other dietary vitamin B12 deficiency anemia (principal); I10 Essential (primary) hypertension; E78.49 Other hyperlipidemia; R53.82 Chronic fatigue, unspecified; E55.9 Vitamin D deficiency, unspecified ==

== ENCOUNTER → 2019-08-20 | Outpatient (CLI) | payer OTHER ==
--- NOTE | 2019-08-20 16:46 | US ---
EXAM DESCRIPTION: Liver CLINICAL HISTORY: ELEVATED LFT's COMPARISON: Gallbladder sonogram December 31, 2012 TECHNIQUE: Right upper quadrant ultrasound FINDINGS: Pancreas: Visualized portions of the pancreas are unremarkable. Bowel gas obscures some areas. Aorta/inferior vena cava: No aortic aneurysm. Normal inferior vena cava. Liver: The liver is homogeneous in texture with normal echogenicity of the hepatic parenchyma. No focal liver lesion or intrahepatic bile duct dilatation. No liver surface irregularity. Normal appearance of the portal vein and hepatic veins. Gallbladder: Gallbladder appears normal with no intraluminal stones or wall thickening. Common bile duct: Normal caliber measuring 4.8 mm. Right kidney: Renal length is 9.7 cm. Normal cortical echogenicity. Cortical thickness is normal. No hydronephrosis is seen. No renal mass or shadowing calculus. IMPRESSION: No diagnostic abnormality is identified on sonographic examination of the right upper quadrant. Electronically signed by: Roel Cedillo MD 08/20/2019 4:44 PM CDT
== END ==
LOC: US 10:51
PROVIDERS: ATTEND Family Medicine
DX: R94.5 Abnormal results of liver function studies (principal)

== ENCOUNTER → 2019-08-31 | Outpatient (CLI) | payer OTHER | LOC: LAB.O 11:16 | PROVIDERS: ATTEND Family Medicine | DX: R94.5 Abnormal results of liver function studies (principal) ==

== ENCOUNTER 2020-02-08 01:14 | Emergency (ER) | payer OTHER ==
[2020-02-08] MEDS ORDERED: ACETYLCYSTEIN 20 % 6,000 MG/30 ML VIAL NEB ONE (01:20)
[2020-02-08] MEDS ORDERED: IPRATROPIUM/ALBUTEROL 3 ML VIAL NEB ONE ×2 (01:20→01:21)
[2020-02-08] MEDS ORDERED: predniSONE 20 MG TAB PO ONE (01:20)
[2020-02-08] MEDS ORDERED: ACETYLCYSTEIN 20 % 6,000 MG/30 ML VIAL ONE (01:21)
[2020-02-08] MEDS ORDERED: diphenhydrAMINE HCL 25 MG CAP PO ONE (01:25)
[2020-02-08 01:26] VITALS: O2SAT 99
[2020-02-08] MEDS ORDERED: diphenhydrAMINE HCL 25 MG CAP ONE (01:26)
[2020-02-08] MEDS ORDERED: EPINEPHrine HCL AMP 1 MG/ML AMP SUBCU ONE (01:30)
[2020-02-08] MEDS ORDERED: EPINEPHrine HCL AMP 1 MG/ML AMP ONE (01:34)
--- NOTE | 2020-02-08 01:50 | RAD ---
EXAM: Single view chest. INDICATION: Cough. COMPARISON: Chest x-ray: 03/09/2019. FINDINGS: Cardiac silhouette: Unremarkable. Fanny: Unremarkable. Lobar consolidation: None. Pleural effusion: None. Pneumothorax: None. Other: None. Bones: Unremarkable. Other: None. IMPRESSION: 1. No acute cardiopulmonary process. Electronically signed by: Finn Vera MD 02/08/2020 1:49 AM CDT
[2020-02-08] MEDS ORDERED: HYDROcodone 7.5MG/APAP 325MG 1 EA TAB PO ONE (02:30)
[2020-02-08] MEDS ORDERED: IBUPROFEN 200 MG TAB PO ONE (02:32)
[2020-02-08] MEDS ORDERED: diazePAM 5 MG TAB PO ONE (02:32)
--- NOTE | 2020-02-08 04:23 | ED.PDOC ---
History of Present Illness - General Chief Complaint: Respiratory Problem Stated Complaint: coughing Time Seen by Provider: 02/08/20 01:17 Source: patient Exam Limitations: no limitations - History of Present Illness Initial Comments: The patient is a 55-year-old female presenting to the emergency room secondary to the abrupt onset forceful cough that woke her from sleep about 20 minutes ago. She was doing fine before that. No fevers. No chest pain. The patient does have a history of asthma and she reports that sometimes her asthma exacerbation start like this. Looking back over her history she has had at least 3 or 4 similar episodes. There was some initial concern this may be a part of an allergic reaction. Staff but apparently no her will feel there may be some component of a psychomotor issue here as the patient apparently has some of these exacerbations when she is emotionally stressed. She does however have a significant history of asthma. Timing/Duration: 1/2 hour Severity: moderate Improving Factors: nothing Worsening Factors: nothing Associated Symptoms: cough, shortness of breath Allergies/Adverse Reactions: Allergies Cephalosporins Allergy (Intermediate, Verified 03/09/19 18:58) Rash Ceftriaxone Allergy (Mild, Verified 03/09/19 18:58) Itching Codeine Allergy (Verified 03/09/19 18:58) Home Medications: Ambulatory Orders Alprazolam [Xanax] 1 mg PO DAILY 04/05/18 Lovastatin 40 mg PO BEDTIME 04/05/18 Albuterol Sulfate [Proair Hfa] 2 puff INH Q6H PRN 11/26/18 Diazepam 5 mg PO BID 11/26/18 Escitalopram [Lexapro] 10 mg PO DAILY 11/26/18 Lamotrigine 25 mg PO BID 11/26/18 Modafinil 100 mg PO BID 11/26/18 Sumatriptan Succinate [Imitrex] 100 mg PO PRN PRN 11/26/18 Amitriptyline HCl [Amitriptyline Hydrochlori] 25 mg PO BEDTIME 02/08/20 Chlorthalidone 25 mg PO DAILY 02/08/20 Diltiazem HCl 120 mg PO DAILY 02/08/20 Lansoprazole [Prevacid] 30 mg PO DAILY 02/08/20 Montelukast [Singulair] 10 mg PO DAILY 02/08/20 Ondansetron [Ondansetron Odt] 4 mg PO Q6HR PRN 02/08/20 Oxcarbazepine [Oxtellar Xr] 150 mg PO DAILY 02/08/20 Spironolactone 50 mg PO DAILY 02/08/20 Telmisartan 80 mg PO DAILY 02/08/20 predniSONE [Prednisone] 20 mg PO DAILY #3 tab 02/08/20 Review of Systems - Review of Systems Constitutional: States: no symptoms reported EENTM: States: no symptoms reported Respiratory: States: cough, short of breath Cardiology: States: no symptoms reported Gastrointestinal/Abdominal: States: no symptoms reported Genitourinary: States: no symptoms reported Musculoskeletal: States: no symptoms reported Skin: States: no symptoms reported Neurological: States: no symptoms reported Endocrine: States: no symptoms reported All other Systems: No Change from Baseline Past Medical History (General) - Patient Medical History Hx Seizures: Yes Hx Stroke: No Hx Asthma: Yes Hx of COPD: No Hx Cardiac Disorders: No Hx Congestive Heart Failure: No Hx Pacemaker: No Hx Hypertension: Yes Hx Thyroid Disease: No Hx Diabetes: No Hx Gastroesophageal Reflux: Yes Hx Renal Disease: No Hx Cancer: No Hx MRSA: No Surgical History: cholecystectomy - Vaccination History Hx Influenza Vaccination: Yes Hx Pneumococcal Vaccination: Yes - Social History Hx Tobacco Use: No Hx Chewing Tobacco Use: No Hx Alcohol Use: Yes - 6-8 bottle everyday. last drink new years kassandra. Hx Substance Use: No Hx Substance Use Treatment: No Hx Depression: No Hx Physical Abuse: No Hx Emotional Abuse: No Hx Suspected Abuse: No - Female History Patient : No - hysterectomy Family Medical History - Family History Mother Family History: Unknown Living Status: Hx Family Cancer: Yes Father Living Status: Still Living Hx Family Asthma: Yes Hx Family Hypertension: Yes Hx Family Diabetes: Yes Physical Exam - Physical Exam General Appearance: Alert, Other - Seemingly very uncomfortable Eye Exam: bilateral normal Ears, Nose, Throat: hearing grossly normal, normal pharynx Neck: full range of motion, supple Respiratory: lungs clear, normal breath sounds, no respiratory distress, no accessory muscle use, other - Coarse hacking cough almost as if she had inhaled something Cardiovascular/Chest: normal peripheral pulses, regular rate, rhythm, no edema Peripheral Pulses: radial,right: 2+, radial,left: 2+ Gastrointestinal/Abdominal: non tender, soft Rectal Exam: deferred Back Exam: no CVA tenderness, no vertebral tenderness Extremity: normal range of motion, non-tender, normal inspection, no pedal edema, normal capillary refill 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, alert, normal mood/affect, oriented x 3 Skin Exam: normal color Comments: Vital Signs - 24 hr 02/08/20 02/08/20 02/08/20 01:21 01:41 01:52 Temperature 98.6 F Pulse Rate 88 Pulse Rate [ 920 H 87 Right] Respiratory 20 20 Rate Blood Pressure 109/53 [Left Arm] O2 Sat by Pulse 99 99 99 Oximetry 02/08/20 02/08/20 02:15 03:00 Temperature Pulse Rate Pulse Rate [ 82 81 Right] Respiratory 18 Rate Blood Pressure 97/55 117/59 [Left Arm] O2 Sat by Pulse 99 Oximetry Progress - Progress Progress: 02/08/20 04:24 The patient is a 55-year-old female presented emergency room secondary to a protracted coughing episode that woke her from sleep. This may be related to her asthma. She did receive a dose of a steroid as well as breathing treatments targeted towards that. Additionally she received 1 dose of subcutaneous epinephrine and a dose of Benadryl in case this was the onset of a significant allergic reaction. She also received a dose of Valium to help calm her down. Cough has essentially subsided at this point. Lung morales remain clear. At no point was there any hypoxia. The patient is stable at this time for discharge. I am going to write her for 3 days of oral prednisone and she does need to plan on using her albuterol treatments every 4 hours for the next few days. She is to follow back up with her primary care doctor later this week. ER warnings are given. milady mixon [id number] - Results/Orders Results/Orders: Chest x-ray showed no acute infiltrate. Departure - Departure Clinical Impression: Acute bronchospasm Disposition: Discharge to Home or Self Care Condition: Fair Departure Forms: ED Discharge - Pt. Copy, Patient Portal Self Enrollment Instructions: DI for Asthma -- Adult Diet: regular diet Activity: increase activity as tolerated Referrals: Francisco J Escobar III, MD [Primary Care Provider] - 1-2 Weeks Prescriptions: predniSONE [Prednisone] 20 mg PO DAILY #3 tab Home Medications: Ambulatory Orders Alprazolam [Xanax] 1 mg PO DAILY 04/05/18 Lovastatin 40 mg PO BEDTIME 04/05/18 Albuterol Sulfate [Proair Hfa] 2 puff INH Q6H PRN 11/26/18 Diazepam 5 mg PO BID 11/26/18 Escitalopram [Lexapro] 10 mg PO DAILY 11/26/18 Lamotrigine 25 mg PO BID 11/26/18 Modafinil 100 mg PO BID 11/26/18 Sumatriptan Succinate [Imitrex] 100 mg PO PRN PRN 11/26/18 Amitriptyline HCl [Amitriptyline Hydrochlori] 25 mg PO BEDTIME 02/08/20 Chlorthalidone 25 mg PO DAILY 02/08/20 Diltiazem HCl 120 mg PO DAILY 02/08/20 Lansoprazole [Prevacid] 30 mg PO DAILY 02/08/20 Montelukast [Singulair] 10 mg PO DAILY 02/08/20 Ondansetron [Ondansetron Odt] 4 mg PO Q6HR PRN 02/08/20 Oxcarbazepine [Oxtellar Xr] 150 mg PO DAILY 02/08/20 Spironolactone 50 mg PO DAILY 02/08/20 Telmisartan 80 mg PO DAILY 02/08/20 predniSONE [Prednisone] 20 mg PO DAILY #3 tab 02/08/20 Additional Instructions: The patient is a 55-year-old female presented emergency room secondary to a protracted coughing episode that woke her from sleep. This may be related to her asthma. She did receive a dose of a steroid as well as breathing treatments targeted towards that. Additionally she received 1 dose of subcutaneous epinephrine and a dose of Benadryl in case this was the onset of a significant allergic reaction. She also received a dose of Valium to help calm her down. Cough has essentially subsided at this point. Lung morales remain clear. At no point was there any hypoxia. The patient is stable at this time for discharge. I am going to write her for 3 days of oral prednisone and she does need to plan on using her albuterol treatments every 4 hours for the next few days. She is to follow back up with her primary care doctor later this week. ER warnings are given.
[2020-02-08 04:35] VITALS: BP 102/65; TEMP 98.4
== END 2020-02-08 04:35 | disposition home or self-care (01) ==
LOC: ER 01:14
DX: J98.01 Acute bronchospasm (principal); J45.909 Unspecified asthma, uncomplicated; K21.9 Gastro-esophageal reflux disease without esophagitis; I10 Essential (primary) hypertension; R56.9 Unspecified convulsions; Z79.899 Other long term (current) drug therapy; Z88.1 Allergy status to other antibiotic agents; Z88.5 Allergy status to narcotic agent
CPT/HCPCS: 71045; 94640; J7512; J7620; Q0163

== ENCOUNTER → 2020-03-09 | Outpatient (CLI) | payer OTHER ==
--- NOTE | 2020-03-09 18:05 | MAM ---
EXAM DESCRIPTION: 3D Screening BILATERAL : Digital Mammography. CLINICAL HISTORY: 55 years Female SCREEN . Patient missed six-month follow-up right breast. Occasional right breast pain. No personal or family history of breast cancer. Menarche age 14. Childbirth age 24. Menopause age 45.. Lifetime risk of developing breast cancer (Tyrer-Cuzick model)(%): 7.7 COMPARISON: Bilateral screening digital breast tomosynthesis January 2019. Targeted right breast ultrasound February 2019.. TECHNIQUE: Bilateral CC and MLO projection full-field images, digital tomosynthesis mammographic technique. Bilateral digital 2-D full-field MLO images. CAD available for 2-D images. FINDINGS: The breast parenchymal density pattern is: Scattered areas of fibroglandular density. No skin thickening or nipple retraction. Again noted is a mass density in the posterior third of the upper-outer quadrant of the right breast, approximately 10:00 position. Similar size and appearance compared to the prior study. Skin mole marker posterior left breast. No new focal, stellate mass or density, focal asymmetry , and no suspicious microcalcifications bilateral breasts. IMPRESSION: BI-RADS CATEGORY: 0 - INCOMPLETE- Need additional imaging evaluation. Follow-up ultrasound from 2019. FOLLOW-UP: Recall for additional imaging: Targeted ultrasound right breast.. Written communication concerning the IMPRESSION and Follow-up, will be mailed to the patient and referring health care provider. Electronically signed by: Jared Mccarthy MD 03/09/2020 6:04 PM CDT
== END ==
LOC: MAMMO 11:00
PROVIDERS: ATTEND Family Medicine
DX: Z12.31 Encounter for screening mammogram for malignant neoplasm of breast (principal)

== ENCOUNTER → 2020-03-20 | Outpatient (CLI) | payer OTHER ==
--- NOTE | 2020-03-20 15:45 | US ---
EXAM DESCRIPTION: Breast,Right: Ultrasound CLINICAL HISTORY: 55 yearsFemaleABNORMAL MAMMO . Mass density posterior third upper outer quadrant right breast. COMPARISON: Bilateral screening digital breast tomosynthesis March 09 and January 2019. TECHNIQUE: Transcutaneous scanning of the right breast utilizing gomez-scale and Doppler modes. Scanning performed by the concrete analyst and Dr. Mccarthy. FINDINGS: Ultrasound: Upper outer quadrant posterior right breast. Mostly fatty echotexture. Minimal fibroglandular tissues. Circumscribed anechoic mass measuring 6.6 x 7.9 mm at the 10:00 position, 11 cm from the nipple. Wider than tall orientation with mixed posterior acoustic enhancement and shadowing. Nonvascular. No large calcifications. No dominant solid mass. IMPRESSION: Benign exam. Cyst posterior third upper outer quadrant right breast. BIRAD CATEGORY: 2 BENIGN FINDINGS. RECOMMENDATIONS: FOLLOW UP: Routine digital bilateral mammographic screening, one year interval from February 2020. Written communication explaining the IMPRESSION and follow-up, will be mailed to the patient and referring health care provider. The FINDINGS and the FOLLOW-UP plan were reviewed in person with the patient after the examination. According to the [employer], yearly mammograms are recommended starting at age 40 and continuing as long as a woman is in good health. Any breast change noted on a breast self-exam should be reported promptly to the patient's healthcare provider. Breast MRI is recommended for women with an approximately 20-25% or greater lifetime risk of breast cancer, including women with a strong family history of breast or ovarian cancer and women who have been treated for Hodgkin's disease. A negative mammographic report should not delay tissue diagnosis in patients with significant clinical history or physical findings. Extremely dense breast tissue limits the sensitivity of digital mammography. Electronically signed by: Jared Mccarthy MD 03/20/2020 3:43 PM CDT
== END ==
LOC: US 13:55
PROVIDERS: ATTEND Family Medicine
DX: N60.01 Solitary cyst of right breast (principal)